=== PATIENT | male | born 1975 | race Hispanic/Latino ===

== ENCOUNTER 2016-08-16 13:36 | Emergency (ER) | payer SELFPAY ==
[2016-08-16] MEDS ORDERED: SODIUM CHLORIDE 0.9% 1000ML 1,000 ML IVS ONE ×2 (15:57→17:24)
[2016-08-16 18:37] VITALS: TEMP 99.7
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
[2016-08-16 18:40] VITALS: O2SAT 96
[2016-08-16 22:14] VITALS: BP 176/111
== END 2016-08-16 22:18 | disposition home or self-care (01) ==
LOC: ER 13:36
DX: R53.1 Weakness (principal); E86.0 Dehydration; R53.83 Other fatigue
CPT/HCPCS: 36415; 80053; 81001; 82550; 82553; 83036; 84436; 84443; 85025; J7030

== ENCOUNTER 2016-08-17 20:16 | Observation (INO) | payer OTHER, SELFPAY ==
--- NOTE | 2016-08-17 22:03 | RAD ---
EXAM DESCRIPTION: Chest,2 Views CLINICAL HISTORY: 41 years Male chest discomfort COMPARISON: None. FINDINGS: The cardiomediastinal silhouette appears unremarkable. No consolidating infiltrates or pleural effusions. No pneumothorax. IMPRESSION: No acute abnormality is identified. Electronically signed by: Geovany Low MD 08/17/2016 8:54 PM PHARMACEUTICAL PHYSICIAN
[2016-08-17] MEDS ORDERED: HYDROcodone 5MG/APAP 325MG 1 EA TAB PO ONE (22:33)
[2016-08-17] MEDS ORDERED: ASPIRIN TABLET 325 MG TAB PO ONE (22:33)
[2016-08-17] MEDS ORDERED: SUCRALFATE 1 GM/10 ML 1 GM UD PO ONE (22:33)
[2016-08-17] MEDS ORDERED: METOPROLOL TARTRATE 25 MG TAB PO ONE (22:34)
--- NOTE | 2016-08-17 22:40 | ED.PDOC ---
History of Present Illness - General Chief Complaint: General Stated Complaint: chest discomfort Time Seen by Provider: 08/17/16 20:34 Source: patient, RN notes reviewed Exam Limitations: clinical condition - History of Present Illness Initial Comments: the patient is a 41-year-old male with a history of rheumatic brain injury presenting secondary to chest discomfort of some form. He has a difficult time communicating what he is feeling. Sometimes he says it hurts at other times he says it did not hurt. He keeps saying that it itches. He did however get out that he was scared for his life last night when he walked home from the ER. He was seen at the ER yesterday and treated for some dehydration. He had an elevation of his CPK that was consistent. 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 He does not have any known history of any cardiac difficulties. I'm uncertain if he will actually remember if he did. His EKG is consistent with LVH with small Q waves in 12 and aVL. He was significantly hypertensive upon arrival but with relaxation is come down to a normotensive state. His discomfort upon arrival has resolved as well with the return of a normotensive state. I'm unsure if the hypertension was causing discomfort or if the discomfort was causing the hypotension he denies any recent trauma. He denies any other symptoms. Timing/Duration: 24 hours Severity: moderate Improving Factors: nothing Worsening Factors: nothing Associated Symptoms: chest pain Allergies/Adverse Reactions: Allergies NO KNOWN ALLERGY Allergy (Verified 08/16/16 15:56) Home Medications: Ambulatory Orders NK [NK] 08/17/16 Review of Systems - Review of Systems Constitutional: States: no symptoms reported EENTM: States: no symptoms reported Respiratory: States: no symptoms reported Cardiology: States: chest pain Gastrointestinal/Abdominal: States: no symptoms reported Genitourinary: States: no symptoms reported Musculoskeletal: States: no symptoms reported Skin: States: no symptoms reported Neurological: States: anxiety Endocrine: States: no symptoms reported All other Systems: No Change from Baseline Past Medical History (General) - Patient Medical History Hx Stroke: No Hx Asthma: No Hx Congestive Heart Failure: No Hx Hypertension: No Hx Diabetes: No Surgical History: no surgical history - Vaccination History Hx Tetanus, Diphtheria Vaccination: No Hx Influenza Vaccination: No Hx Pneumococcal Vaccination: No Immunizations Up to Date: Yes - Social History Hx Tobacco Use: No - Activities of Daily Living Hospice Agency (if applicable):: None Family Medical History - Family History Father Family History: Unknown Living Status: Unknown Physical Exam - Physical Exam General Appearance: Alert, Anxious Eye Exam: bilateral normal Ears, Nose, Throat: normal ENT inspection, normal pharynx Neck: full range of motion, supple, normal inspection Respiratory: lungs clear, normal breath sounds, no respiratory distress, no accessory muscle use Cardiovascular/Chest: normal peripheral pulses, regular rate, rhythm, no edema Peripheral Pulses: radial,right: 2+, radial,left: 2+ Gastrointestinal/Abdominal: non tender, soft, no organomegaly Rectal Exam: deferred Back Exam: normal inspection, no CVA tenderness Extremity: normal range of motion, non-tender, normal inspection, no pedal edema , normal capillary refill Neurologic: alert, oriented x 3 Skin Exam: normal color Comments: Vital Signs - 24 hr 08/17/16 08/17/16 08/17/16 20:25 21:04 21:15 Pulse Rate [ 90 88 86 Left radial] Respiratory 18 16 18 Rate Blood Pressure 156/112 172/102 158/87 [Left Arm] O2 Sat by Pulse 93 L 94 L 94 L Oximetry 08/17/16 08/17/16 08/17/16 21:35 22:23 22:41 Pulse Rate [ 81 76 74 Left radial] Respiratory 16 18 18 Rate Blood Pressure 153/86 151/80 147/90 [Left Arm] O2 Sat by Pulse 94 L Oximetry Progress - Progress Progress: 08/17/16 22:43 the patient is a 41-year-old male presenting to the emergency room secondary to chest discomfort of some form. I'm uncertain of the source on this patient and the picture is made more vague by the patient's inability to communicate what he is feeling. We will admit the patient for observation overnight and for reevaluation in the morning. If he remains moderately hypertensive then possibly starting him on an every antihypertensive medication may be beneficial. He was given a dose of aspirin tonight as well as a low- dose of metoprolol. Telemetry monitoring has been reassuring so far. He is currently chest pain-free. - Results/Orders Results/Orders: Laboratory Tests 08/17/16 20:50 WBC 9.2 RBC 4.82 Hgb 14.8 Hct 43.4 MCV 90.0 MCH 30.8 MCHC 34.2 RDW 14.0 Plt Count 291 MPV 7.5 Absolute Neuts (auto) 6.70 Absolute Lymphs (auto) 1.80 Absolute Monos (auto) 0.60 Absolute Eos (auto) 0.00 Absolute Basos (auto) 0.00 Neutrophils % 72.7 Lymphocytes % 19.9 L Monocytes % 6.7 Eosinophils % 0.4 L Basophils % 0.3 PT 11.4 INR 1.010 PTT (SP) 32.2 Sodium 139 Potassium 3.8 Chloride 101 Carbon Dioxide 29 Anion Gap 12.8 BUN 18 Creatinine 0.93 BUN/Creatinine Ratio 19.4 Random Glucose 159 H Serum Osmolality 282.8 Calcium 9.5 Total Bilirubin 0.5 AST 55 H ALT 97 H Alkaline Phosphatase 59 Creatine Kinase 520 H* CK-MB (CK-2) 3.3 CK-MB (CK-2) % 0.63 Troponin I < 0.02 B-Natriuretic Peptide 20.8 Serum Total Protein 8.3 H Albumin 4.4 Globulin 3.9 H Albumin/Globulin Ratio 1.1 EKG shows normal sinus rhythm at a rate of 85 bpm. He has small Q waves in 12 and aVL. He does have some hypertrophy due to high voltage in the anterior leads. No acute ST segment changes concerning for ischemia. Chest x-ray shows no gross fluid overload, pneumonia or pneumothorax. Departure - Departure Clinical Impression: Uncontrolled hypertension Chest pain Qualifiers: Chest pain type: precordial chest pain Qualifier Code: (R07.2) Precordial pain Disposition: Admit Patient Home Medications: Ambulatory Orders NK [NK] 08/17/16 Decision To Admit - Decistion To Admit Decision to Admit Reason: Medical Nature Decision to Admit Date: 08/17/16 Decision to Admit Time: 22:45
[2016-08-17] MEDS ORDERED: ACETAMINOPHEN 325 MG TAB PO PRN (23:01)
[2016-08-17] MEDS ORDERED: MORPHINE SULFATE INJ 10 MG/ML VIAL IV PRN (23:01)
[2016-08-17] MEDS ORDERED: NITROGLYCERIN 0.4 MG 25 EA TAB SL PRN (23:01)
[2016-08-17] MEDS ORDERED: SODIUM CHLORIDE 0.9% (FLUSH) 10 ML SYG IV PRN (23:01)
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
[2016-08-17] MEDS ORDERED: IV SET AND CAP CHANGE INJ INJ SCH (23:30)
--- NOTE | 2016-08-18 00:15 | PCM.CORE ---
Physician DVT/VTE - Nurse DVT Assessment & Total Each Risk Factor is 1 Point: Obesity (BMI >25) DVT Assessment Score: 1 - 0-1 Low Risk Treatments: Early Ambulation, Low Risk no further treatment or intervention needed
[2016-08-18] MEDS ORDERED: SODIUM CHLORIDE 0.9% 10 ML VIAL IV PRN (07:27)
[2016-08-18] MEDS ORDERED: ASPIRIN TABLET 325 MG TAB PO SCH (09:00)
[2016-08-18] MEDS ORDERED: SODIUM CHLORIDE 0.9% (FLUSH) 10 ML SYG IV SCH (09:00)
[2016-08-18] MEDS ORDERED: LISINOPRIL 5 MG TAB ONE (14:56)
[2016-08-18] MEDS ORDERED: LISINOPRIL 10 MG TAB PO SCH (15:00)
[2016-08-18 15:57] VITALS: BP 164/103; TEMP 98.6; O2SAT 94
[2016-08-18] MEDS ORDERED: ALPRAZolam 0.25 MG TAB PO ONE (16:35)
[2016-08-18] MEDS ORDERED: ALPRAZolam 0.25 MG TAB ONE (16:43)
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
--- NOTE | 2016-08-19 13:46 | RAD ---
EXAM DESCRIPTION: Chest,2 Views CLINICAL HISTORY: 41 years Male chest discomfort COMPARISON: None. FINDINGS: The cardiomediastinal silhouette appears unremarkable. No consolidating infiltrates or pleural effusions. No pneumothorax. IMPRESSION: No acute abnormality is identified. Electronically signed by: Geovany Low MD 08/17/2016 8:54 PM MANAGER POOL
--- NOTE | 2016-08-24 00:30 | RAD ---
EXAM DESCRIPTION: Chest,2 Views CLINICAL HISTORY: 41 years Male chest discomfort COMPARISON: None. FINDINGS: The cardiomediastinal silhouette appears unremarkable. No consolidating infiltrates or pleural effusions. No pneumothorax. IMPRESSION: No acute abnormality is identified. Electronically signed by: Geovany Low MD 08/17/2016 8:54 PM CATTLE SORTER
--- NOTE | 2016-08-24 00:30 | RAD ---
EXAM DESCRIPTION: Chest,2 Views CLINICAL HISTORY: 41 years Male chest discomfort COMPARISON: None. FINDINGS: The cardiomediastinal silhouette appears unremarkable. No consolidating infiltrates or pleural effusions. No pneumothorax. IMPRESSION: No acute abnormality is identified. Electronically signed by: Geovany Low MD 08/17/2016 8:54 PM EPITAXIAL REACTOR OPERATOR
== END 2016-08-18 16:55 | disposition home or self-care (01) ==
LOC: ER 20:16 → MS 23:10
PROVIDERS: ADMIT Nurse Practitioner Family; ATTEND Nurse Practitioner Acute Care
DX: R07.89 Other chest pain (principal); R79.89 Other specified abnormal findings of blood chemistry; I10 Essential (primary) hypertension; F41.9 Anxiety disorder, unspecified; Z87.820 Personal history of traumatic brain injury

== ENCOUNTER 2016-08-26 03:15 | Emergency (ER) | payer OTHER, SELFPAY ==
[2016-08-26 03:34] VITALS: O2SAT 95
[2016-08-26] MEDS ORDERED: SODIUM CHLORIDE 0.9% (FLUSH) 10 ML SYG IV PRN (03:45)
--- NOTE | 2016-08-26 05:31 | RAD ---
Clinical History : palpitations , MAIN Exam : Portable AP view of the chest 08/26/2016 3:45 AM WEB PRESS OPERATOR ASSISTANT Comparisons : PA and lateral views of the chest August 17, 2016 Findings : The lungs are clear without focal consolidation or pleural effusion. The heart is normal in size. The mediastinal contours are normal in appearance. The thoracic spine is age appropriate. The shoulders are unremarkable. Limited evaluation of the upper abdomen demonstrates no gross abnormalities. Impression: No acute cardiopulmonary disease (stable appearing chest). Electronically signed by: Pauline Elias MD 08/26/2016 5:10 AM WEB PRESS OPERATOR ASSISTANT
--- NOTE | 2016-08-26 06:48 | ED.PDOC ---
History of Present Illness - General Chief Complaint: General Stated Complaint: muscles feel weak Time Seen by Provider: 08/26/16 03:45 Source: patient, RN notes reviewed, Vital Signs reviewed Exam Limitations: other - Poor historian - History of Present Illness Initial Comments: Patient is a 41 y/o male who has been to the ED several times in the past week. He complains of chest pain and feeling weak. He is a very poor historian and very vague about his symptoms. He says he has "pressure" in his chest and his muscles are very weak. He has an appointment with Marycarmen Jalloh NP later today. It is difficult to get a good story about his pain out of him. Timing/Duration: unsure Severity: mild Improving Factors: nothing Worsening Factors: nothing Associated Symptoms: chest pain, weakness Allergies/Adverse Reactions: Allergies NO KNOWN ALLERGY Allergy (Verified 08/16/16 15:56) Home Medications: Ambulatory Orders Lisinopril [Prinivil] 10 mg PO DAILY #30 tab 08/18/16 Review of Systems - Review of Systems Constitutional: States: malaise, weakness EENTM: States: no symptoms reported Respiratory: States: no symptoms reported Cardiology: States: chest pain Gastrointestinal/Abdominal: States: no symptoms reported Genitourinary: States: no symptoms reported Musculoskeletal: States: muscle pain Skin: States: no symptoms reported Neurological: States: headache Endocrine: States: no symptoms reported Hematologic/Lymphatic: States: no symptoms reported All other Systems: Reviewed and Negative Past Medical History (General) - Patient Medical History Hx Seizures: No Hx Stroke: No Hx Asthma: No Hx of COPD: No Hx Congestive Heart Failure: No Hx Pacemaker: No Hx Hypertension: Yes Hx Diabetes: No Hx MRSA: No - Vaccination History Hx Tetanus, Diphtheria Vaccination: No Hx Influenza Vaccination: No Hx Pneumococcal Vaccination: No - Social History Hx Tobacco Use: No Hx Alcohol Use: No - drinks twice per month Hx Substance Use: No Hx Physical Abuse: No Hx Emotional Abuse: No Family Medical History - Family History Father Family History: Unknown Living Status: Unknown Physical Exam - Physical Exam General Appearance: Alert, Comfortable, No apparent distress Eye Exam: bilateral normal Ears, Nose, Throat: hearing grossly normal, normal ENT inspection Neck: non-tender, full range of motion, supple, normal inspection Respiratory: lungs clear, normal breath sounds, no respiratory distress, no accessory muscle use Cardiovascular/Chest: normal peripheral pulses, regular rate, rhythm, no edema, no gallop, no murmur Gastrointestinal/Abdominal: normal bowel sounds, non tender, soft, no organomegaly Extremity: normal range of motion, non-tender, normal inspection, no pedal edema Neurologic: alert, oriented x 3 Skin Exam: normal color Progress - Results/Orders Results/Orders: 08/26/16 08/26/16 08/26/16 03:29 04:04 04:24 Temperature 98.9 F Pulse Rate [ 100 H 90 Right] Respiratory 20 Rate Blood Pressure 160/102 146/87 [Left Arm] O2 Sat by Pulse 95 95 Oximetry 08/26/16 08/26/16 05:33 06:20 Temperature Pulse Rate [ 88 74 Right] Respiratory 16 16 Rate Blood Pressure 142/86 133/78 [Left Arm] O2 Sat by Pulse Oximetry 08/26/16 03:45 IV Care:Saline Lock per Protoc QSHIFT Telemetry .ONCE Sodium Chloride 0.9% (Flush) [Saline Flush Syringe] 10 ml IV PRN PRN EKG Stat Pulse Ox Stat Laboratory Results WBC 9.0 K/mm3 (4.8-10.8) 08/26/16 04:19 RBC 4.91 M/mm3 (4.70-6.10) 08/26/16 04:19 Hgb 15.0 gm/dL (14.0-18.0) 08/26/16 04:19 Hct 43.4 % (42.0-52.0) 08/26/16 04:19 MCV 88.4 fl (80.0-94.0) 08/26/16 04:19 MCH 30.5 pg (27.0-31.0) 08/26/16 04:19 MCHC 34.5 g/dL (33.0-37.0) 08/26/16 04:19 RDW 14.2 % (11.5-14.5) 08/26/16 04:19 Plt Count 293 K/mm3 (130-400) 08/26/16 04:19 MPV 7.6 fl (7.40-10.4) 08/26/16 04:19 Absolute Neuts (auto) 6.40 K/uL (1.8-6.8) 08/26/16 04:19 Absolute Lymphs (auto) 1.80 K/uL (1.0-3.4) 08/26/16 04:19 Absolute Monos (auto) 0.70 K/uL (0.2-0.8) 08/26/16 04:19 Absolute Eos (auto) 0.10 K/uL (0.0-0.4) 08/26/16 04:19 Absolute Basos (auto) 0.10 K/uL (0.0-0.1) 08/26/16 04:19 Neutrophils % 71.1 % (42.0-78.0) 08/26/16 04:19 Lymphocytes % 20.2 % (20.0-50.0) 08/26/16 04:19 Monocytes % 7.4 % (2.0-9.0) 08/26/16 04:19 Eosinophils % 0.6 % (1.0-5.0) L 08/26/16 04:19 Basophils % 0.7 % (0.0-2.0) 08/26/16 04:19 PT 12.2 SECONDS (9.4-12.5) 08/26/16 04:19 INR 1.080 08/26/16 04:19 PTT (SP) 31.5 SECONDS (25.1-36.5) 08/26/16 04:19 Sodium 135 mmol/L (135-145) 08/26/16 04:19 Potassium 3.4 mmol/L (3.6-5.0) L 08/26/16 04:19 Chloride 96 mmol/L (101-111) L 08/26/16 04:19 Carbon Dioxide 29 mmol/L (21-31) 08/26/16 04:19 Anion Gap 13.4 (12-18) 08/26/16 04:19 BUN 12 mg/dL (7-18) 08/26/16 04:19 Creatinine 0.99 mg/dL (0.6-1.3) 08/26/16 04:19 BUN/Creatinine Ratio 12.1 (10-20) 08/26/16 04:19 Random Glucose 140 mg/dL (70-105) H 08/26/16 04:19 Serum Osmolality 272.2 mOsm/L (275-295) L 08/26/16 04:19 Calcium 9.4 mg/dL (8.4-10.2) 08/26/16 04:19 Magnesium 1.9 mg/dL (1.8-2.5) 08/26/16 04:19 Creatine Kinase 404 IU/L (38-174) H* 08/26/16 04:19 CK-MB (CK-2) 3.7 ng/mL (0.0-4.4) 08/26/16 04:19 CK-MB (CK-2) % 0.01 % (0.0-3.5) 08/26/16 04:19 Troponin I < 0.02 ng/mL (0.01-0.05) 08/26/16 04:19 B-Natriuretic Peptide < 5.0 pg/ml (0-100) 08/26/16 04:19 Urine Color Colorless (Yellow) 08/26/16 04:50 Urine Appearance Clear (Clear) 08/26/16 04:50 Urine pH 5.5 (4.5-7.8) 08/26/16 04:50 Ur Specific [place] <= 1.005 (1.005-1.030) 08/26/16 04:50 Urine Protein Negative mg/dL 08/26/16 04:50 Urine Glucose (UA) Negative mg/dL (Negative) 08/26/16 04:50 Urine Ketones Negative mg/dL (NEGATIVE) 08/26/16 04:50 Urine Blood Trace-lysed (Negative) H 08/26/16 04:50 Urine Nitrite Negative 08/26/16 04:50 Urine Bilirubin Negative (NEGATIVE) 08/26/16 04:50 Urine Urobilinogen 0.2 mg/dL (0.2-1.0) 08/26/16 04:50 Ur Leukocyte Esterase Negative (Negative) 08/26/16 04:50 Urine RBC 0 /hpf 08/26/16 04:50 Urine WBC 0 /hpf 08/26/16 04:50 Ur Epithelial Cells 0 /hpf 08/26/16 04:50 Urine Bacteria 0 08/26/16 04:50 - EKG/XRAY/CT EKG: Sinus - 88 bpm, no ST T wave changes, Unchanged from - 08/17/2016 - NSR Comments: NML axis, NML intervals, NSR XRAY: chest Xray Comments: No acute process Departure - Departure Clinical Impression: Elevated CK Chest pain Qualifiers: Chest pain type: unspecified Qualifier Code: (R07.9) Chest pain, unspecified Disposition: Discharge to Home or Self Care Condition: Fair Departure Forms: ED Discharge - Pt. Copy, Patient Portal Self Enrollment Instructions: DI for Atypical Chest Pain Diet: resume usual diet Referrals: Marycarmen Jalloh NP [Nurse Practitioner] - 1-2 Days Home Medications: Ambulatory Orders Lisinopril [Prinivil] 10 mg PO DAILY #30 tab 08/18/16 Additional Instructions: Keep appt. with Marycarmen Jalloh, N.P. today to discuss options. Stay well- hydrated. Follow up if symptoms persist or worsen.
[2016-08-26 07:04] VITALS: BP 138/80; TEMP 97.9
--- NOTE | 2016-08-28 13:37 | RAD ---
Clinical History : palpitations , MAIN Exam : Portable AP view of the chest 08/26/2016 3:45 AM ANIMATED [employer] Comparisons : PA and lateral views of the chest August 17, 2016 Findings : The lungs are clear without focal consolidation or pleural effusion. The heart is normal in size. The mediastinal contours are normal in appearance. The thoracic spine is age appropriate. The shoulders are unremarkable. Limited evaluation of the upper abdomen demonstrates no gross abnormalities. Impression: No acute cardiopulmonary disease (stable appearing chest). Electronically signed by: Pauline Elias MD 08/26/2016 5:10 AM [employer]IMATED [employer]
== END 2016-08-26 07:04 | disposition home or self-care (01) ==
LOC: ER 03:15
DX: R07.9 Chest pain, unspecified (principal); R79.89 Other specified abnormal findings of blood chemistry; I10 Essential (primary) hypertension; Z79.899 Other long term (current) drug therapy

== ENCOUNTER 2016-08-27 02:10 | Emergency (ER) | payer OTHER, SELFPAY ==
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
[2016-08-27 07:05] VITALS: BP 154/61; TEMP 97.6; O2SAT 97
== END 2016-08-27 07:08 | disposition home or self-care (01) ==
LOC: ER 02:10
DX: I10 Essential (primary) hypertension (principal); Z79.899 Other long term (current) drug therapy

== ENCOUNTER 2016-08-30 19:41 | Emergency (ER) | payer OTHER, SELFPAY ==
[2016-08-30] MEDS ORDERED: SODIUM CHLORIDE 0.9% (FLUSH) 10 ML SYG IV PRN (20:40)
--- NOTE | 2016-08-30 21:22 | RAD ---
EXAM DESCRIPTION: Chest,2 Views CLINICAL HISTORY: shortness of breath COMPARISON: August 26, 2016 FINDINGS: Cardiac silhouette is within normal limits. There is no focal parenchymal or pleural disease. There is no acute osseous process visualized. IMPRESSION: No evidence of acute cardiopulmonary disease. Electronically signed by: Shakeel Boyle MD 08/30/2016 9:22 PM [facility]
[2016-08-30] MEDS ORDERED: SODIUM CHLORIDE 0.9% 1000ML 1,000 ML IVS ONE (21:53)
[2016-08-30] MEDS ORDERED: PENICILLIN BENZATHINE 1.2 MU 1.2 MU/2 ML SYG IM ONE (21:55)
--- NOTE | 2016-08-30 22:30 | ED.PDOC ---
History of Present Illness - General Chief Complaint: Respiratory Problem Stated Complaint: thinks he has a cold,weakness,difficulty breathing Time Seen by Provider: 08/30/16 20:39 Source: patient, RN notes reviewed, Vital Signs reviewed Exam Limitations: no limitations - History of Present Illness Initial Comments: Patient is a 41 y/o male who has been to the ED several times because he doesn' t feel well. Today, he states that he is having touble breathing because of his throat. When he goes outside, the wind takes his breath away, and his throat feels swollen. He is also complaining of feeling weak, especially his legs. He has had elevated CK for some time. He denies any fever or chills. Timing/Duration: other - 3 days Severity: moderate Improving Factors: nothing Worsening Factors: other - wind Associated Symptoms: shortness of breath, weakness Allergies/Adverse Reactions: Allergies NO KNOWN ALLERGY Allergy (Verified 08/27/16 02:41) Home Medications: Ambulatory Orders Lisinopril [Prinivil] 10 mg PO DAILY #30 tab 08/18/16 Clonazepam 0.5 mg PO DAILY #15 tab 08/27/16 Famotidine 20 mg PO DAILY #30 tab 08/27/16 Propranolol HCl 20 mg PO BID #60 tab 08/27/16 Review of Systems - Review of Systems Constitutional: States: weakness. Denies: chills, fever EENTM: States: throat pain, throat swelling. Denies: ear pain, nose congestion Respiratory: States: short of breath Cardiology: States: no symptoms reported Gastrointestinal/Abdominal: States: no symptoms reported Genitourinary: States: no symptoms reported Musculoskeletal: States: muscle pain Skin: States: no symptoms reported Neurological: States: anxiety, weakness Endocrine: States: no symptoms reported Hematologic/Lymphatic: States: no symptoms reported All other Systems: Reviewed and Negative Past Medical History (General) - Patient Medical History Hx Seizures: No Hx Stroke: No Hx Asthma: No Hx of COPD: No Hx Congestive Heart Failure: No Hx Pacemaker: No Hx Hypertension: Yes Hx Diabetes: No Hx MRSA: No - Vaccination History Hx Tetanus, Diphtheria Vaccination: No Hx Influenza Vaccination: No Hx Pneumococcal Vaccination: No Immunizations Up to Date: Yes - Social History Hx Tobacco Use: No Hx Alcohol Use: Yes Hx Substance Use: Yes - as teen Hx Depression: Yes Hx Physical Abuse: No Hx Emotional Abuse: No Family Medical History - Family History Father Family History: Unknown Living Status: Unknown Physical Exam - Physical Exam General Appearance: Alert, Anxious, No apparent distress Ears, Nose, Throat: hearing grossly normal, abnormal TM (R) - cerumen impaction , abnormal TM (L) - cerumen impaction, pharyngeal erythema - with vesicular lesions on posterior pharynx Neck: non-tender, normal inspection Respiratory: lungs clear, normal breath sounds, no respiratory distress, no accessory muscle use Cardiovascular/Chest: regular rate, rhythm, no edema, no murmur Gastrointestinal/Abdominal: normal bowel sounds, non tender, soft, no organomegaly Extremity: normal range of motion, non-tender, no pedal edema Neurologic: alert, normal mood/affect, oriented x 3 Skin Exam: normal color, warm/dry Progress - Results/Orders Results/Orders: 08/30/16 08/30/16 20:08 21:04 Temperature 99.4 F Pulse Rate [ 91 H monitor] Respiratory 18 Rate Blood Pressure 133/81 [Left Arm] O2 Sat by Pulse 93 L 98 Oximetry 08/30/16 20:40 IV Care:Saline Lock per Protoc QSHIFT Telemetry .ONCE Sodium Chloride 0.9% (Flush) [Saline Flush Syringe] 10 ml IV PRN PRN EKG Assessment ONCE EKG Stat Pulse Ox Stat Pulse Oximetry Assessment DAILY 08/30/16 21:53 Sodium Chloride 0.9% 1000ML [Ns 1000 ml] 1,000 ml IVS ONCE Laboratory Results WBC 7.8 K/mm3 (4.8-10.8) 08/30/16 20:50 RBC 4.80 M/mm3 (4.70-6.10) 08/30/16 20:50 Hgb 14.8 gm/dL (14.0-18.0) 08/30/16 20:50 Hct 43.0 % (42.0-52.0) 08/30/16 20:50 MCV 89.5 fl (80.0-94.0) 08/30/16 20:50 MCH 30.7 pg (27.0-31.0) 08/30/16 20:50 MCHC 34.3 g/dL (33.0-37.0) 08/30/16 20:50 RDW 14.2 % (11.5-14.5) 08/30/16 20:50 Plt Count 255 K/mm3 (130-400) 08/30/16 20:50 MPV 7.7 fl (7.40-10.4) 08/30/16 20:50 Absolute Neuts (auto) 5.50 K/uL (1.8-6.8) 08/30/16 20:50 Absolute Lymphs (auto) 1.40 K/uL (1.0-3.4) 08/30/16 20:50 Absolute Monos (auto) 0.70 K/uL (0.2-0.8) 08/30/16 20:50 Absolute Eos (auto) 0.20 K/uL (0.0-0.4) 08/30/16 20:50 Absolute Basos (auto) 0.00 K/uL (0.0-0.1) 08/30/16 20:50 Neutrophils % 69.9 % (42.0-78.0) 08/30/16 20:50 Lymphocytes % 17.6 % (20.0-50.0) L 08/30/16 20:50 Monocytes % 9.4 % (2.0-9.0) H 08/30/16 20:50 Eosinophils % 2.8 % (1.0-5.0) 08/30/16 20:50 Basophils % 0.3 % (0.0-2.0) 08/30/16 20:50 PT 11.9 SECONDS (9.4-12.5) 08/30/16 20:50 INR 1.050 08/30/16 20:50 PTT (SP) 28.6 SECONDS (25.1-36.5) 08/30/16 20:50 D-Dimer, Quantitative < 230 ng/mL (0-230) 08/30/16 20:50 Sodium 138 mmol/L (135-145) 08/30/16 20:50 Potassium 4.1 mmol/L (3.6-5.0) 08/30/16 20:50 Chloride 97 mmol/L (101-111) L 08/30/16 20:50 Carbon Dioxide 32 mmol/L (21-31) H 08/30/16 20:50 Anion Gap 13.1 (12-18) 08/30/16 20:50 BUN 16 mg/dL (7-18) 08/30/16 20:50 Creatinine 1.04 mg/dL (0.6-1.3) 08/30/16 20:50 BUN/Creatinine Ratio 15.4 (10-20) 08/30/16 20:50 Random Glucose 119 mg/dL (70-105) H 08/30/16 20:50 Serum Osmolality 278.0 mOsm/L (275-295) 08/30/16 20:50 Calcium 10.1 mg/dL (8.4-10.2) 08/30/16 20:50 Magnesium 2.2 mg/dL (1.8-2.5) 08/30/16 20:50 Total Bilirubin 0.3 mg/dL (0.2-1.0) 08/30/16 20:50 Direct Bilirubin < 0.1 mg/dL (0-0.2) 08/30/16 20:50 Indirect Bilirubin 0.2 mg/dL (0.2-0.8) 08/30/16 20:50 AST 41 IU/L (10-42) 08/30/16 20:50 ALT 54 IU/L (10-60) 08/30/16 20:50 Alkaline Phosphatase 59 IU/L (42-121) 08/30/16 20:50 Creatine Kinase 574 IU/L (38-174) H* 08/30/16 20:50 CK-MB (CK-2) 3.1 ng/mL (0.0-4.4) 08/30/16 20:50 CK-MB (CK-2) % Not Reportable 08/30/16 20:50 Troponin I < 0.02 ng/mL (0.01-0.05) 08/30/16 20:50 B-Natriuretic Peptide < 5.0 pg/ml (0-100) 08/30/16 20:50 Serum Total Protein 7.7 gm/dL (6.4-8.2) 08/30/16 20:50 Albumin 4.2 g/dl (3.2-5.5) 08/30/16 20:50 Group A Strep Rapid Positive (NEGATIVE) 08/30/16 20:55 - EKG/XRAY/CT EKG: Sinus - 92 bpm, no ST T wave changes, Changed from - 08/27/2016 - decreased amplitude of Q-waves in leads I, II, aVL in today's EKG Comments: NML axis, NML intervals--NSR Departure - Departure Clinical Impression: Strep pharyngitis, Elevated CK Time of Disposition: 23:30 Disposition: Discharge to Home or Self Care Condition: Fair Departure Forms: ED Discharge - Pt. Copy, Patient Portal Self Enrollment Instructions: Strep Throat, DI for Strep Throat, Creatine Kinase Referrals: Marycarmen Jalloh NP [Nurse Practitioner] - 1-2 Weeks Home Medications: Ambulatory Orders Lisinopril [Prinivil] 10 mg PO DAILY #30 tab 08/18/16 Clonazepam 0.5 mg PO DAILY #15 tab 08/27/16 Famotidine 20 mg PO DAILY #30 tab 08/27/16 Propranolol HCl 20 mg PO BID #60 tab 08/27/16 Additional Instructions: May take Tylenol for fever or pain. Follow up with PCP or ED if symptoms worsen.
[2016-08-30 23:48] VITALS: BP 158/87; TEMP 99.2; O2SAT 94
== END 2016-08-30 23:48 | disposition home or self-care (01) ==
LOC: ER 19:41
DX: J02.0 Streptococcal pharyngitis (principal); R79.89 Other specified abnormal findings of blood chemistry; I10 Essential (primary) hypertension; F32.9 Major depressive disorder, single episode, unspecified; Z79.899 Other long term (current) drug therapy

== ENCOUNTER → 2016-09-04 | Outpatient (CLI) | payer OTHER, SELFPAY ==
--- NOTE | 2016-09-07 07:36 | RAD ---
Three view thoracic spine. Indication: PAIN IN THORACIC SPINE Comparison: None. Impression: Minimal levocurvature thoracolumbar junction with minimal dextro curvature mid thoracic spine. The No acute fracture or subluxation. Minimal disc space height loss mid thoracic levels. Electronically signed by: Da Flores MD 09/07/2016 7:35 AM CDT
== END | disposition home or self-care (01) ==
LOC: YCFC.O 14:43
PROVIDERS: ATTEND Nurse Practitioner Family
DX: M54.6 Pain in thoracic spine (principal)

== ENCOUNTER 2016-09-14 11:16 | Emergency (ER) | payer OTHER, SELFPAY ==
[2016-09-14 11:57] VITALS: TEMP 97.9; O2SAT 97
--- NOTE | 2016-09-14 12:02 | ED.PDOC ---
History of Present Illness - General Chief Complaint: General Stated Complaint: arm creeks Time Seen by Provider: 09/14/16 11:18 Source: patient, RN notes reviewed, Vital Signs reviewed Exam Limitations: no limitations - History of Present Illness Initial Comments: Patient is here because he feels he needs a Tetnus shot. He reports that since his L elbow creeks and his forearm muscles are softer on the L. He also has chronic low back pain. He is a poor historian. Does not remember his last Tetnus shot. He denies any scrapes or cuts prior to his arm starting to lime. This is his 6th visit in the past 30 days for multiple, vague complaints. Denies pain, numbness or tingling in L arm. + weakness. Timing/Duration: constant - for over a month Severity: mild Improving Factors: nothing Worsening Factors: nothing Associated Symptoms: denies symptoms Allergies/Adverse Reactions: Allergies NO KNOWN ALLERGY Allergy (Verified 08/27/16 02:41) Home Medications: Ambulatory Orders Lisinopril [Prinivil] 10 mg PO DAILY #30 tab 08/18/16 Clonazepam 0.5 mg PO DAILY #15 tab 08/27/16 Famotidine 20 mg PO DAILY #30 tab 08/27/16 Propranolol HCl 20 mg PO BID #60 tab 08/27/16 Review of Systems - Review of Systems Constitutional: States: no symptoms reported EENTM: States: no symptoms reported Respiratory: States: no symptoms reported Cardiology: States: no symptoms reported Gastrointestinal/Abdominal: States: no symptoms reported Musculoskeletal: States: other - L forearm creeking and weak, Low back pain Skin: States: no symptoms reported Neurological: States: no symptoms reported, weakness - L forearm. Denies: headache, numbness, paresthesia, pre-existing deficit, tingling, tremors Endocrine: States: no symptoms reported Hematologic/Lymphatic: States: no symptoms reported Past Medical History (General) - Patient Medical History Hx Seizures: No Hx Stroke: No Hx Asthma: No Hx of COPD: No Hx Congestive Heart Failure: No Hx Pacemaker: No Hx Hypertension: Yes Hx Diabetes: No Hx MRSA: No - Vaccination History Hx Tetanus, Diphtheria Vaccination: No - not sure when his last one was Hx Influenza Vaccination: No Hx Pneumococcal Vaccination: No Immunizations Up to Date: No - Social History Hx Tobacco Use: No Hx Alcohol Use: Yes - 2 beers day Hx Substance Use: No Hx Substance Use Treatment: No Hx Depression: No Hx Physical Abuse: No Hx Emotional Abuse: No - Female History Patient is a Female of Child Bearing Age (10 -59 yrs old): No Family Medical History - Family History Father Family History: Unknown Living Status: Unknown Physical Exam - Physical Exam General Appearance: Alert, Comfortable, No apparent distress, Well Developed, Well Groomed, Well Hydrated, Well Nourished Respiratory: chest non-tender, lungs clear, normal breath sounds, no respiratory distress, no accessory muscle use Cardiovascular/Chest: regular rate, rhythm, no edema, no gallop, no JVD, no murmur Peripheral Pulses: radial,right: 2+, radial,left: 2+ Back Exam: normal inspection, no CVA tenderness, no vertebral tenderness Extremity: normal range of motion, non-tender, normal inspection, no pedal edema Neurologic: no motor/sensory deficits - Strength 5/5 bilateral upper ext, sensation intact and equal to light touch bilaterally, alert, normal mood/affect , oriented x 3 DTR: 2+: Biceps, left, Biceps, right Skin Exam: normal color, warm/dry Progress - Progress Progress: 09/14/16 12:59 Vital Signs - 24 hr 09/14/16 11:52 Temperature 97.9 F Pulse Rate [ 84 right arm] Respiratory 18 Rate Blood Pressure 157/92 [Right Arm] O2 Sat by Pulse 97 Oximetry 09/14/16 13:02 T-Dap given - EKG/XRAY/CT XRAY: L-Spine - Normal - Normal Departure - Departure Clinical Impression: Arthralgia, Low back pain, Myalgia Time of Disposition: 13:01 Disposition: Discharge to Home or Self Care Condition: Good Departure Forms: ED Discharge - Pt. Copy, Patient Portal Self Enrollment Instructions: DI for Arthralgia Diet: resume usual diet Activity: increase activity as tolerated Home Medications: Ambulatory Orders Lisinopril [Prinivil] 10 mg PO DAILY #30 tab 08/18/16 Clonazepam 0.5 mg PO DAILY #15 tab 08/27/16 Famotidine 20 mg PO DAILY #30 tab 08/27/16 Propranolol HCl 20 mg PO BID #60 tab 08/27/16 Additional Instructions: Take Tylenol or Motrin as needed for pain.
[2016-09-14] MEDS: TETANUS,DIPHTHERIA,PERTUSSIS 1 EA SYG IM ONE (12:35)
--- NOTE | 2016-09-14 12:39 | RAD ---
EXAM DESCRIPTION: Elbow,Left 3 Views CLINICAL HISTORY: Pain after injury COMPARISON: None. IMPRESSION: 3 views of the left elbow shows no evidence of acute fracture, focal bone destruction, or joint dislocation. Soft tissues are unremarkable. No obvious joint effusion is seen. Electronically signed by: Raudel Preciado MD 09/14/2016 12:39 PM CDT
--- NOTE | 2016-09-14 12:55 | RAD ---
EXAM DESCRIPTION: Lumbar Spine 3 Views CLINICAL HISTORY: 41 years Male, Pain after injury COMPARISON: None. FINDINGS: 3 views of the lumbar spine show vertebral body heights and intervertebral disc spaces to be maintained. Normal alignment of the lumbar spine is seen. Patient is rotated slightly on lateral projection limiting evaluation. No significant disc space narrowing is appreciated. IMPRESSION: Unremarkable lumbar spine series. Electronically signed by: Raudel Preciado MD 09/14/2016 12:54 PM CDT
[2016-09-14 13:15] VITALS: BP 148/79
== END 2016-09-14 13:15 | disposition home or self-care (01) ==
LOC: ER 11:16
DX: M25.522 Pain in left elbow (principal); G89.29 Other chronic pain; M54.5 Low back pain; M79.1 Myalgia; I10 Essential (primary) hypertension; Z79.899 Other long term (current) drug therapy; Z23 Encounter for immunization

== ENCOUNTER → 2016-09-29 | Outpatient (CLI) | payer SELFPAY ==
--- NOTE | 2016-09-30 10:07 | RAD ---
EXAM DESCRIPTION: Cervical Spine,3 Views CLINICAL HISTORY: 41 years Male, Cervicalgia COMPARISON: None. FINDINGS: 3 views of the cervical spine show vertebral body heights to be maintained. Mild anterior disc bulging and marginal endplate osteophytes are seen at C5-6 and C6-7. There is straightening of the normal cervical lordosis with no abnormal increase in the prevertebral soft tissues. The C1-2 relationship is maintained. IMPRESSION: Mild disc degenerative changes from C5 through C7. Straightening of the normal cervical lordosis is nonspecific and can be secondary to patient positioning or muscle spasm. Electronically signed by: Raudel Preciado MD 09/30/2016 10:06 AM CDT
== END ==
LOC: RAD 16:20
PROVIDERS: ATTEND Nurse Practitioner Family
DX: M50.322 Other cervical disc degeneration at C5-C6 level (principal); M50.323 Other cervical disc degeneration at C6-C7 level

== ENCOUNTER 2016-10-28 15:27 | Emergency (ER) | payer SELFPAY ==
[2016-10-28 15:45] VITALS: TEMP 98.6
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
--- NOTE | 2016-10-28 17:28 | RAD ---
EXAM DESCRIPTION: Lumbar Spine 3 Views CLINICAL HISTORY: 41 years ,Male pain COMPARISON: 09/14/2016. TECHNIQUE: Three views of the lumbar spine. FINDINGS: Vertebral body alignment appears unremarkable. Lucency along the lateral aspect of the right L3 transverse process concerning for acute fracture. Correlation with clinical history is recommended. Mild degenerative changes. IMPRESSION: Lucency along the lateral aspect of the right L3 transverse process could be from acute fracture. Correlation with the clinical history is recommended. Electronically signed by: Geovany Low MD 10/28/2016 5:25 PM CDT
[2016-10-28 17:58] VITALS: BP 114/62; O2SAT 95
== END 2016-10-28 17:50 | disposition home or self-care (01) ==
LOC: ER 15:27
DX: G62.9 Polyneuropathy, unspecified (principal); I10 Essential (primary) hypertension; Z79.899 Other long term (current) drug therapy

== ENCOUNTER → 2016-12-11 | Outpatient (CLI) | payer SELFPAY | END | disposition home or self-care (01) | LOC: YCFC.O 16:09 | PROVIDERS: ATTEND Nurse Practitioner Family | DX: K21.0 Gastro-esophageal reflux disease with esophagitis (principal) ==

== ENCOUNTER 2017-01-14 13:55 | Emergency (ER) | payer SELFPAY ==
--- NOTE | 2017-01-14 15:33 | ED.PDOC ---
History of Present Illness - General Chief Complaint: Skin/Abrasion/Tear Time Seen by Provider: 01/14/17 15:26 Source: patient Exam Limitations: no limitations - History of Present Illness Initial Comments: the patient is a 41-year-old male presenting to the emergency room secondary to some itching to bilateral feet for the last week. The patient does have some obvious athlete's foot between the toes. The rest of his feet are very dry and cracking. He does have some known neuropathy. He does take gabapentin. He does report however that this itching is a different kind and he has had his neuropathy in the past. No recent injuries. Timing/Duration: 1 week Severity: mild Improving Factors: nothing Worsening Factors: nothing Associated Symptoms: denies symptoms Allergies/Adverse Reactions: Allergies NO KNOWN ALLERGY Allergy (Verified 10/28/16 15:56) Home Medications: Ambulatory Orders B-Complex W/ Folic Acid [B Complex Plus] 1 tab PO BEDTIME #100 tab 10/28/16 Gabapentin 300 mg PO BID #30 cap 10/28/16 Lisinopril [Prinivil] 10 mg PO BEDTIME 10/28/16 Paroxetine HCl [Paxil] 10 mg PO BEDTIME 10/28/16 predniSONE 20 mg PO DAILY #10 tab 10/28/16 Review of Systems - Review of Systems Constitutional: States: no symptoms reported EENTM: States: no symptoms reported Respiratory: States: no symptoms reported Cardiology: States: no symptoms reported Gastrointestinal/Abdominal: States: no symptoms reported Genitourinary: States: no symptoms reported Musculoskeletal: States: no symptoms reported Skin: States: see HPI Neurological: States: no symptoms reported Endocrine: States: no symptoms reported All other Systems: No Change from Baseline Past Medical History (General) - Patient Medical History Hx Seizures: No Hx Stroke: No Hx Asthma: No Hx of COPD: No Hx Congestive Heart Failure: No Hx Pacemaker: No Hx Hypertension: Yes Hx Diabetes: No Hx MRSA: No - Vaccination History Hx Tetanus, Diphtheria Vaccination: No - not sure when his last one was Hx Influenza Vaccination: No Hx Pneumococcal Vaccination: No - Social History Hx Tobacco Use: No Hx Alcohol Use: Yes - infrequent use Hx Substance Use: No Hx Substance Use Treatment: No Hx Depression: No Hx Physical Abuse: No Hx Emotional Abuse: No Family Medical History - Family History Father Family History: Unknown Living Status: Hx Family Cancer: - possible prostate cancer Physical Exam - Physical Exam General Appearance: Alert, Comfortable, No apparent distress Ears, Nose, Throat: hearing grossly normal, normal pharynx Neck: non-tender Respiratory: no respiratory distress, no accessory muscle use Cardiovascular/Chest: normal peripheral pulses, no edema Peripheral Pulses: dorsalis pedis,right: 2+, dorsalis pedis,left: 2+ Rectal Exam: deferred Extremity: normal range of motion, non-tender, no pedal edema, no calf tenderness, normal capillary refill Neurologic: alert, oriented x 3, other - the patient does appear to have some mild decreased sensation to bilateral feet which is apparently not new. Skin Exam: other - dry skin to bilateral feet. Athlete's foot between the toes on both feet. He does have some onychomycosis of the nails of both feet Progress - Progress Progress: 01/14/17 15:34 the patient is a 41-year-old male presenting to the emergency room secondary to itchiness of his feet. Given the short duration of the symptoms this is most likely due to dry skin rather than his neuropathy. The patient can use a very thin layer of Vaseline topically once daily to help improve this. Additionally he does need to continue his medicine for athlete's foot between his toes twice daily. ER warnings were given. He needs to follow-up with his primary care doctor next week. Departure - Departure Clinical Impression: Dry skin dermatitis Tinea pedis Qualifiers: Laterality: bilateral Qualified Code(s): B35.3 - Tinea pedis Disposition: Discharge to Home or Self Care Condition: Fair Departure Forms: ED Discharge - Pt. Copy, Patient Portal Self Enrollment Instructions: DI for Athlete's Foot Diet: regular diet Activity: increase activity as tolerated Referrals: Mayrcarmen Jalloh NP [Primary Care Provider] - 1-5 Days Home Medications: Ambulatory Orders B-Complex W/ Folic Acid [B Complex Plus] 1 tab PO BEDTIME #100 tab 10/28/16 Gabapentin 300 mg PO BID #30 cap 10/28/16 Lisinopril [Prinivil] 10 mg PO BEDTIME 10/28/16 Paroxetine HCl [Paxil] 10 mg PO BEDTIME 10/28/16 predniSONE 20 mg PO DAILY #10 tab 10/28/16 Additional Instructions: the patient is a 41-year-old male presenting to the emergency room secondary to itchiness of his feet. Given the short duration of the symptoms this is most likely due to dry skin rather than his neuropathy. The patient can use a very thin layer of Vaseline topically once daily to help improve this. Additionally he does need to continue his medicine for athlete's foot between his toes twice daily. ER warnings were given. He needs to follow-up with his primary care doctor next week.
[2017-01-14 16:07] VITALS: TEMP 99.2; O2SAT 94
[2017-01-14 16:28] VITALS: BP 135/86
== END 2017-01-14 15:55 | disposition home or self-care (01) ==
LOC: ER 13:55
DX: B35.3 Tinea pedis (principal); L85.3 Xerosis cutis; I10 Essential (primary) hypertension; G62.9 Polyneuropathy, unspecified; Z79.899 Other long term (current) drug therapy

== ENCOUNTER 2017-03-18 16:11 | Emergency (ER) | payer SELFPAY ==
[2017-03-18] MEDS ORDERED: ALUMINUM & MAGNESIUM HYDROXIDE 30 ML UD PO ONE (16:41)
[2017-03-18] MEDS ORDERED: SIMETHICONE 80 MG TAB PO ONE (16:41)
--- NOTE | 2017-03-18 17:05 | RAD ---
EXAM DESCRIPTION: Abdomen Series CLINICAL HISTORY: 42 years Male ,epigastric discomfort, bloating COMPARISON: None. TECHNIQUE: Frontal view chest x-ray and two views of the abdomen. FINDINGS: The cardiomediastinal silhouette appears unremarkable. No consolidating infiltrates or pleural effusions. No free air is identified beneath the hemidiaphragms. No dilated loops of bowel to suggest obstruction. IMPRESSION: No acute plain film abnormality is identified. Electronically signed by: Anay Low 03/18/2017 5:03 PM CDT
[2017-03-18 17:13] VITALS: O2SAT 94
[2017-03-18] MEDS ORDERED: MAGNESIUM HYDROXIDE 30 ML UD PO ONE (19:29)
--- NOTE | 2017-03-18 19:45 | ED.PDOC ---
History of Present Illness - General Chief Complaint: GI Problem Stated Complaint: bloating Time Seen by Provider: 03/18/17 16:40 Source: patient Exam Limitations: no limitations - History of Present Illness Initial Comments: the patient is a 42-year-old male presenting to the emergency room secondary to Diego abdominal discomfort for last for 5 days. No point tenderness. No diarrhea. Sensation is more like bloating and distention. He has been belching a fair amount. no Vomiting. No fevers. No rebound or peritoneal signs. No difficulty with ambulating. Timing/Duration: 1 week Severity: mild Improving Factors: nothing Worsening Factors: nothing Associated Symptoms: denies symptoms Allergies/Adverse Reactions: Allergies NO KNOWN ALLERGY Allergy (Verified 10/28/16 15:56) Home Medications: Ambulatory Orders Sucralfate Tab [Carafate Tab] 1 gm PO QID #120 tab 03/18/17 Review of Systems - Review of Systems Constitutional: States: no symptoms reported EENTM: States: no symptoms reported Respiratory: States: no symptoms reported Cardiology: States: no symptoms reported Gastrointestinal/Abdominal: States: abdominal pain, nausea Genitourinary: States: no symptoms reported Musculoskeletal: States: no symptoms reported Skin: States: no symptoms reported Neurological: States: no symptoms reported All other Systems: No Change from Baseline Past Medical History (General) - Patient Medical History Hx Seizures: No Hx Stroke: No Hx Asthma: No Hx of COPD: No Hx Congestive Heart Failure: No Hx Pacemaker: No Hx Hypertension: Yes Hx Diabetes: No Hx MRSA: No Surgical History: no surgical history - Vaccination History Hx Tetanus, Diphtheria Vaccination: No - not sure when his last one was Hx Influenza Vaccination: Yes Hx Pneumococcal Vaccination: No - Social History Hx Tobacco Use: No Hx Alcohol Use: Yes - infrequent use Hx Substance Use: No Hx Substance Use Treatment: No Hx Depression: No Hx Physical Abuse: No Hx Emotional Abuse: No Family Medical History - Family History Father Family History: Unknown Living Status: Hx Family Cancer: - possible prostate cancer Physical Exam - Physical Exam General Appearance: Alert, Comfortable, No apparent distress Eye Exam: bilateral normal Ears, Nose, Throat: normal ENT inspection, normal pharynx, other - he patient does have some chronic slurring of speech. Neck: non-tender, supple Respiratory: chest non-tender, lungs clear, normal breath sounds, no respiratory distress, no accessory muscle use Cardiovascular/Chest: normal peripheral pulses, regular rate, rhythm, no edema Peripheral Pulses: radial,right: 2+, radial,left: 2+, dorsalis pedis,right: 2+, dorsalis pedis,left: 2+ Gastrointestinal/Abdominal: normal bowel sounds, non tender, soft, no pulsatile mass Rectal Exam: deferred Back Exam: normal inspection, no CVA tenderness Extremity: non-tender, no pedal edema, no calf tenderness, normal capillary refill Neurologic: alert, normal mood/affect, oriented x 3, other - the patient does have some chronic neurological deficits. Skin Exam: normal color Comments: Vital Signs - 24 hr 03/18/17 17:11 Temperature 97.8 F Pulse Rate [ 82 Left Brachial] Respiratory 20 Rate Blood Pressure 127/82 [Left Arm] O2 Sat by Pulse 94 L Oximetry Progress - Progress Progress: 03/18/17 19:50 the patient is a 42-year-old male presenting with abdominal discomfort that is most likely related to constipation and some mild gastritis. The patient is to pear picker some Maalox and take a tablespoon or 2 every 4 hours as needed to reduce discomfort. He'll be placed on Carafate 1 g by mouth 4 times a day for the next month. He is given one dose of milk of magnesia here tonight for the constipation. he needs to keep well-hydrated. He needs to follow-up with his primary care doctor next week. ER warnings were given.i also recommend that he stop taking the acidophilus. - Results/Orders Results/Orders: x-ray of the abdomen appears benign. No obstruction. No free air. He does have some constipation. Departure - Departure Clinical Impression: Gastritis Qualifiers: Gastritis type: unspecified gastritis Chronicity: acute Gastritis bleeding: without bleeding Qualified Code(s): K29.00 - Acute gastritis without bleeding Constipation Qualifiers: Constipation type: unspecified constipation type Qualified Code(s): K59.00 - Constipation, unspecified Disposition: Discharge to Home or Self Care Condition: Fair Departure Forms: ED Discharge - Pt. Copy, Patient Portal Self Enrollment Instructions: DI for Gastritis, DI for Constipation Diet: bland diet Activity: increase activity as tolerated Referrals: Marycarmen Jalloh NP [Primary Care Provider] - 1-2 Weeks Prescriptions: Sucralfate Tab [Carafate Tab] 1 gm PO QID #120 tab Home Medications: Ambulatory Orders Sucralfate Tab [Carafate Tab] 1 gm PO QID #120 tab 03/18/17 Additional Instructions: the patient is a 42-year-old male presenting with abdominal discomfort that is most likely related to constipation and some mild gastritis. The patient is to pear picker some Maalox and take a tablespoon or 2 every 4 hours as needed to reduce discomfort. He'll be placed on Carafate 1 g by mouth 4 times a day for the next month. He is given one dose of milk of magnesia here tonight for the constipation. he needs to keep well-hydrated. He needs to follow-up with his primary care doctor next week. ER warnings were given.i also recommend that he stop taking the acidophilus.
[2017-03-18 21:13] VITALS: BP 122/82; TEMP 98
== END 2017-03-18 20:45 | disposition home or self-care (01) ==
LOC: ER 16:11
DX: K29.00 Acute gastritis without bleeding (principal); K59.00 Constipation, unspecified

== ENCOUNTER 2017-05-14 02:26 | Emergency (ER) | payer SELFPAY ==
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
[2017-05-14] MEDS ORDERED: NAPROXEN 500 MG TAB PO ONE (02:55)
[2017-05-14] MEDS ORDERED: PROMETHAZINE HCL 25 MG TAB PO ONE (02:55)
[2017-05-14] MEDS ORDERED: BACLOFEN 10 MG TAB PO ONE (02:56)
[2017-05-14 03:13] VITALS: BP 149/96; TEMP 98.4; O2SAT 96
== END 2017-05-14 03:16 | disposition home or self-care (01) ==
LOC: ER 02:26
DX: R51 Headache (principal)

== ENCOUNTER 2017-09-01 18:34 | Emergency (ER) | payer MEDICAID ==
[2017-09-01] MEDS ORDERED: LACTATED RINGERS 1,000 ML IVS ONE (20:21)
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
[2017-09-01 23:06] VITALS: O2SAT 96
[2017-09-01 23:13] VITALS: BP 175/107; TEMP 98.5
[2017-09-01] MEDS ORDERED: amLODIPine BESYLATE 5 MG TAB PO ONE (23:15)
[2017-09-01] MEDS ORDERED: LISINOPRIL 10 MG TAB PO ONE (23:15)
== END 2017-09-01 23:30 | disposition home or self-care (01) ==
LOC: ER 18:34
DX: R53.81 Other malaise (principal); R25.2 Cramp and spasm; I10 Essential (primary) hypertension
CPT/HCPCS: 36415; 80048; 80076; 80307; 81001; 82550; 82553; 84484; 85025; 85610; 85730; 93005; J7120

== ENCOUNTER 2017-09-11 09:16 | Emergency (ER) | payer MEDICAID ==
[2017-09-11 09:33] VITALS: TEMP 98.4
--- NOTE | 2017-09-11 09:43 | ED.PDOC ---
History of Present Illness - General Chief Complaint: Headache Stated Complaint: Migraine Time Seen by Provider: 09/11/17 09:40 Source: patient, RN notes reviewed Additional Information: 42 YEAR OLD COMPLAINTS OF HEADACHE RIGHT SIDE ONSET 2 DAYS NO ASSOCIATED FEVER CHILLS HAS NO TRAUMA NO PHOTOPHOBIA NO SKIN RASH NO SINUS SYMPTOMS NO DENTAL PAIN TOOK ADVIL BUT NO RELIEF - History of Present Illness Timing/Duration: 4-6 hours Quality: mild, constant Recent Head Trauma: no recent headache/trauma, chronic headaches Improving Factors: nothing Worsening Factors: nothing Allergies/Adverse Reactions: Allergies NO KNOWN ALLERGY Allergy (Verified 09/01/17 19:06) Home Medications: Ambulatory Orders Sucralfate Tab [Carafate Tab] 1 gm PO QID #120 tab 03/18/17 Baclofen 10 mg PO BID #10 tab 05/14/17 Baclofen 10 mg PO BID #30 tab 09/01/17 Lisinopril 10 mg PO BEDTIME #30 tab 09/01/17 Review of Systems - Review of Systems Constitutional: States: no symptoms reported EENTM: States: no symptoms reported Respiratory: States: no symptoms reported Cardiology: States: no symptoms reported Gastrointestinal/Abdominal: States: no symptoms reported Genitourinary: States: no symptoms reported Skin: States: no symptoms reported Neurological: States: see HPI Endocrine: States: no symptoms reported Hematologic/Lymphatic: States: no symptoms reported Past Medical History (General) - Patient Medical History Hx Seizures: No Hx Stroke: No Hx Dementia: No Hx Asthma: No Hx of COPD: No Hx Cardiac Disorders: No Hx Congestive Heart Failure: No Hx Pacemaker: No Hx Hypertension: Yes Hx Thyroid Disease: No Hx Diabetes: No Hx Gastroesophageal Reflux: No Hx Renal Disease: No Hx Cancer: No Hx of HIV: No Hx Hepatitis C: No Hx MRSA: No - Vaccination History Hx Tetanus, Diphtheria Vaccination: No Hx Influenza Vaccination: Yes Hx Pneumococcal Vaccination: No - Social History Hx Tobacco Use: No Hx Alcohol Use: Yes - daily use Hx Substance Use: No Hx Substance Use Treatment: No Hx Depression: No Hx Physical Abuse: No Hx Emotional Abuse: No Family Medical History - Family History Father Family History: Unknown Living Status: Hx Family Cancer: - possible prostate cancer Physical Exam - Physical Exam General Appearance: Alert, Comfortable Eyes, Ears, Nose, Throat Exam: PERRL/EOMI, normal ENT inspection, TMs normal, pharynx normal Neck: non-tender, full range of motion, supple Cardiovascular/Chest: normal peripheral pulses, regular rate, rhythm, no edema, no gallop, no JVD, no murmur Respiratory: chest non-tender, lungs clear, normal breath sounds, no respiratory distress Gastrointestinal/Abdominal: normal bowel sounds, non tender, soft, no organomegaly Extremity: normal range of motion, non-tender, normal inspection, no pedal edema , no calf tenderness 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 Copy, Patient Portal Self Enrollment Instructions: DI for Headache Diet: resume usual diet Activity: increase activity as tolerated Referrals: Abebe Anders MD [Primary Care Provider] - 1-2 Weeks Home Medications: Ambulatory Orders Sucralfate Tab [Carafate Tab] 1 gm PO QID #120 tab 03/18/17 Baclofen 10 mg PO BID #10 tab 05/14/17 Baclofen 10 mg PO BID #30 tab 09/01/17 Lisinopril 10 mg PO BEDTIME #30 tab 09/01/17
[2017-09-11] MEDS ORDERED: KETOROLAC TROMETHAMINE INJ 60 MG/2 ML VIAL IM ONE (09:50)
[2017-09-11] MEDS ORDERED: PROMETHAZINE HCL INJ 25 MG/ML VIAL IM PRN (09:51)
[2017-09-11 10:32] VITALS: BP 158/96; O2SAT 95
== END 2017-09-11 10:31 | disposition home or self-care (01) ==
LOC: ER 09:16
DX: G43.909 Migraine, unspecified, not intractable, without status migrainosus (principal); I10 Essential (primary) hypertension
CPT/HCPCS: J1885; J2550

== ENCOUNTER → 2018-04-07 | Outpatient (CLI) | payer OTHER | LOC: YCFC.O 08:42 | PROVIDERS: ATTEND Family Medicine | DX: Z00.00 Encounter for general adult medical examination without abnormal findings (principal); I10 Essential (primary) hypertension; R53.83 Other fatigue ==

== ENCOUNTER 2018-04-14 09:04 | Emergency (ER) | payer OTHER ==
[2018-04-14] MEDS ORDERED: SODIUM CHLORIDE 0.9% 1000ML 1,000 ML IVS ONE (09:25)
--- NOTE | 2018-04-14 09:28 | ED.PDOC ---
History of Present Illness - General Chief Complaint: General Time Seen by Provider: 04/14/18 09:10 Source: patient - History of Present Illness Initial Comments: THIS PATIENT JUST HAD LABORATORY AND AN ABDOMINAL SONOGRAM. HE PRESENTS TO THE ED BECAUSE HE IS WEAK. THE PATIENT IS A [employer] HIST[employer] HE JUST VOICES THAT HE IS WEAK. Timing/Duration: 1 week Severity: moderate Improving Factors: nothing Worsening Factors: nothing Associated Symptoms: denies symptoms Allergies/Adverse Reactions: Allergies NO KNOWN ALLERGY Allergy (Verified 09/01/17 19:06) Home Medications: Ambulatory Orders Sucralfate Tab [Carafate Tab] 1 gm PO QID #120 tab 03/18/17 Baclofen 10 mg PO BID #10 tab 05/14/17 Baclofen 10 mg PO BID #30 tab 09/01/17 Lisinopril 10 mg PO BEDTIME #30 tab 09/01/17 Review of Systems - Review of Systems Constitutional: States: weakness EENTM: States: no symptoms reported Respiratory: States: no symptoms reported Cardiology: States: no symptoms reported Gastrointestinal/Abdominal: States: no symptoms reported Genitourinary: States: no symptoms reported Musculoskeletal: States: no symptoms reported Skin: States: no symptoms reported Neurological: States: no symptoms reported Endocrine: States: no symptoms reported Hematologic/Lymphatic: States: no symptoms reported All other Systems: Reviewed and Negative Past Medical History (General) - Patient Medical History Hx Seizures: No Hx Stroke: No Hx Dementia: No Hx Asthma: No Hx of COPD: No Hx Cardiac Disorders: No Hx Congestive Heart Failure: No Hx Pacemaker: No Hx Hypertension: Yes Hx Thyroid Disease: No Hx Diabetes: No Hx Gastroesophageal Reflux: No Hx Renal Disease: No Hx Cancer: No Hx of HIV: No Hx Hepatitis C: No Hx MRSA: No - Vaccination History Hx Tetanus, Diphtheria Vaccination: No Hx Influenza Vaccination: Yes Hx Pneumococcal Vaccination: No - Social History Hx Tobacco Use: No Hx Alcohol Use: Yes - daily use Hx Substance Use: No Hx Substance Use Treatment: No Hx Depression: No Hx Physical Abuse: No Hx Emotional Abuse: No Family Medical History - Family History Father Family History: Unknown Living Status: Hx Family Cancer: - possible prostate cancer Physical Exam - Physical Exam General Appearance: Alert, No apparent distress Eye Exam: bilateral normal Ears, Nose, Throat: hearing grossly normal Neck: non-tender, full range of motion, supple Respiratory: chest non-tender, lungs clear, normal breath sounds, no respiratory distress, no accessory muscle use Cardiovascular/Chest: normal peripheral pulses, regular rate, rhythm Peripheral Pulses: radial,right: 2+, radial,left: 2+ Gastrointestinal/Abdominal: normal bowel sounds, non tender, soft, no organomegaly, no pulsatile mass Rectal Exam: deferred Back Exam: normal inspection Extremity: normal range of motion, non-tender, normal inspection Neurologic: alert, normal mood/affect Skin Exam: normal color Progress - Progress Progress: 04/14/18 10:19 OTHER THAN SLIGHT ELEVATION OF THE TRANSAMINASES THE LAB IS NORMAL. Departure - Departure Clinical Impression: Generalized weakness Time of Disposition: 10:20 Disposition: Discharge to Home or Self Care Condition: Good Departure Forms: ED Discharge - Pt. Copy, Patient Portal Self Enrollment Diet: resume usual diet Referrals: Froylan Styles MD [Primary Care Provider] - 1-2 Weeks Home Medications: Ambulatory Orders Sucralfate Tab [Carafate Tab] 1 gm PO QID #120 tab 03/18/17 Baclofen 10 mg PO BID #10 tab 05/14/17 Baclofen 10 mg PO BID #30 tab 09/01/17 Lisinopril 10 mg PO BEDTIME #30 tab 09/01/17
[2018-04-14 09:34] VITALS: TEMP 98.7
[2018-04-14 11:02] VITALS: BP 158/95; O2SAT 96
== END 2018-04-14 11:00 | disposition home or self-care (01) ==
LOC: ER 09:04
DX: R53.1 Weakness (principal); I10 Essential (primary) hypertension
CPT/HCPCS: 36415; 80053; 81001; 85025; J7030

== ENCOUNTER → 2018-04-14 | Outpatient (CLI) | payer OTHER ==
--- NOTE | 2018-04-14 09:54 | US ---
Procedure: US LIVER Exam Date: 04/14/2018 Ordering Provider: SONIA POLANCO Clinical Indication: ELEVATED LIVER ENZYMES Comparison: None Technique: Real-time ultrasonography was obtained over the right upper quadrant and phone representative images were recorded. Findings: There are no gallstones within the gallbladder lumen. There are multiple gallbladder polyps, largest measuring 5 mm. There is no gallbladder wall thickening or pericholecystic fluid. Negative Li's. The common bile duct is normal in size measuring 5 mm. The liver is enlarged measuring up to 16.5 cm. There is diffuse increased echogenicity of the liver consistent with fatty infiltration. There is no hepatic mass. There is no intrahepatic ductal dilatation. Visualized pancreas is unremarkable. No hydronephrosis in the right kidney. There is no ascites. Impression: 1. Hepatomegaly and hepatic steatosis. 2. Gallbladder polyps. Electronically signed by: Miki Jarrell MD 04/14/2018 9:52 AM CDT
== END ==
LOC: YCFC.O 08:12
PROVIDERS: ATTEND Family Medicine
DX: R74.8 Abnormal levels of other serum enzymes (principal); K76.0 Fatty (change of) liver, not elsewhere classified; K82.4 Cholesterolosis of gallbladder

== ENCOUNTER 2018-05-06 19:01 | Emergency (ER) | payer OTHER ==
[2018-05-06] MEDS ORDERED: ONDANSETRON INJ 4 MG/2 ML VIAL IV ONE (19:14)
[2018-05-06] MEDS ORDERED: ASPIRIN (CHEWABLE) 81 MG TAB PO ONE (19:15)
--- NOTE | 2018-05-06 19:33 | RAD ---
EXAM DESCRIPTION: Chest,1 View CLINICAL HISTORY: 43 years Male, chest pain COMPARISON: Chest x-ray August 30, 2016 FINDINGS: No consolidation. No pneumothorax. No significant pleural effusion. Cardiomediastinal silhouette is unremarkable. Osseous structures are unremarkable. IMPRESSION: No acute findings. Electronically signed by: Stephan Isabel MD 05/06/2018 7:31 PM DIRECTOR [employer]
[2018-05-06] MEDS: NITROGLYCERIN 0.4 MG 25 EA TAB SL ONE ×2 (19:34→20:06)
--- NOTE | 2018-05-06 19:34 | ED.PDOC ---
History of Present Illness - General Chief Complaint: Chest Pain/[place] Stated Complaint: Chest pain, dyspnea, nausea x 3 days Time Seen by Provider: 05/06/18 19:32 Source: patient - History of Present Illness Initial Comments: David Bruno 43 y/o male stated that he had been having sharp chest pains on and off for the last 3 days radiating to both arms also felt SOB and nausea with it. Timing/Duration: days - 3 days Severity/Quality: sharp Location: central Chest Pain Radiation: shoulders Activities at Onset: none Prior Chest Pain/Cardiac Workup: no prior chest pain Improving Factors: nothing Worsening Factors: nothing Nitro Today/Relief: 0.4 mg x 1 Aspirin Treatment Today: 325 mg x 1 Associated Symptoms: nausea/vomiting, shortness of breath Allergies/Adverse Reactions: Allergies NO KNOWN ALLERGY Allergy (Verified 09/01/17 19:06) Review of Systems - Review of Systems Constitutional: States: no symptoms reported EENTM: States: no symptoms reported Respiratory: States: no symptoms reported Cardiology: States: see HPI Gastrointestinal/Abdominal: States: no symptoms reported Genitourinary: States: no symptoms reported Musculoskeletal: States: no symptoms reported Skin: States: no symptoms reported Neurological: States: no symptoms reported Endocrine: States: no symptoms reported Hematologic/Lymphatic: States: no symptoms reported Past Medical History (General) - Patient Medical History Hx Seizures: No Hx Stroke: No Hx Dementia: No Hx Asthma: No Hx of COPD: No Hx Cardiac Disorders: No Hx Congestive Heart Failure: No Hx Pacemaker: No Hx Hypertension: Yes Hx Thyroid Disease: No Hx Diabetes: No Hx Gastroesophageal Reflux: No Hx Renal Disease: No Hx Cancer: No Hx of HIV: No Hx Hepatitis C: No Hx MRSA: No Surgical History: no surgical history - Vaccination History Hx Tetanus, Diphtheria Vaccination: No Hx Influenza Vaccination: Yes Hx Pneumococcal Vaccination: No - Social History Hx Tobacco Use: No Hx Alcohol Use: Yes - daily use Hx Substance Use: No Hx Substance Use Treatment: No Hx Depression: No Hx Physical Abuse: No Hx Emotional Abuse: No - Activities of Daily Living Patient Lives Alone: Yes Family Medical History - Family History Father Family History: Unknown Living Status: Hx Family Cancer: - possible prostate cancer Physical Exam - Physical Exam General Appearance: Alert, Comfortable, No apparent distress Eyes, Ears, Nose, Throat Exam: normal ENT inspection, pharynx normal Neck: non-tender, full range of motion, supple, normal inspection Respiratory: chest non-tender, lungs clear, normal breath sounds, no respiratory distress Cardiovascular/Chest: normal peripheral pulses, regular rate, rhythm, no murmur Peripheral Pulses: radial,right: 2+, radial,left: 2+ Gastrointestinal/Abdominal: normal bowel sounds, non tender, soft, no organomegaly Neurologic: alert, oriented x 3 Skin Exam: normal color, warm/dry Progress - Progress Progress: 05/06/18 20:46 Vital Signs - 8 hr 05/06/18 05/06/18 05/06/18 19:13 19:38 20:02 Temperature 98.5 F Pulse Rate [ 92 H 92 H 90 monitor] Respiratory 20 20 20 Rate Blood Pressure 97/68 141/81 [Left Arm] O2 Sat by Pulse 96 94 L Oximetry 05/06/18 22:34 D/W patient test result and advised to stay in hospital -obs for further cardiac enzyme studies - Results/Orders Results/Orders: 05/06/18 19:14 IV Care:Saline Lock per Protoc QSHIFT Telemetry .ONCE EKG Stat Pulse Ox Stat 05/06/18 19:37 D-DIMER,QUANTITATIVE Stat Laboratory Results - last 24 hr 05/06/18 05/06/18 05/06/18 19:37 19:37 20:47 WBC 8.2 RBC 4.62 L Hgb 14.7 Hct 42.9 MCV 92.9 MCH 31.8 H MCHC 34.3 RDW 13.5 Plt Count 232 MPV 8.2 Absolute Neuts (auto) 5.20 Absolute Lymphs (auto) 2.10 Absolute Monos (auto) 0.60 Absolute Eos (auto) 0.20 Absolute Basos (auto) 0.10 Neutrophils % 63.7 Lymphocytes % 25.4 Monocytes % 7.7 Eosinophils % 2.4 Basophils % 0.8 PT 9.6 INR 0.96 PTT (SP) 23.9 Sodium 136 Potassium 4.0 Chloride 100 L Carbon Dioxide 27 Anion Gap 13.0 BUN 19 H Creatinine 1.33 H BUN/Creatinine Ratio 14.3 Random Glucose 122 H Serum Osmolality 275.5 Calcium 9.1 Magnesium 1.6 L Total Bilirubin 0.4 Direct Bilirubin < 0.1 Indirect Bilirubin 0.3 AST 38 ALT 71 H Alkaline Phosphatase 66 Creatine Kinase 267 H* CK-MB (CK-2) 2.4 CK-MB (CK-2) % 0.90 Troponin I < 0.02 B-Natriuretic Peptide 16.7 Serum Total Protein 7.0 Albumin 4.0 Urine Color Urine Appearance Urine pH Ur Specific [place] Urine Protein Urine Glucose (UA) Urine Ketones Urine Blood Urine Nitrite Urine Bilirubin Urine Urobilinogen Ur Leukocyte Esterase Urine RBC Urine WBC Ur Epithelial Cells Urine Bacteria Urine Opiates Screen Negative Urine Barbiturates Negative Ur Phencyclidine Scrn Negative U Amphetamin/Meth Scrn Negative U Benzodiazepines Scrn Negative U Cocaine Metab Screen Negative U Cannabinoids Screen Negative 05/06/18 05/06/18 20:50 21:00 WBC RBC Hgb Hct MCV MCH MCHC RDW Plt Count MPV Absolute Neuts (auto) Absolute Lymphs (auto) Absolute Monos (auto) Absolute Eos (auto) Absolute Basos (auto) Neutrophils % Lymphocytes % Monocytes % Eosinophils % Basophils % PT INR PTT (SP) Sodium Potassium Chloride Carbon Dioxide Anion Gap BUN Creatinine BUN/Creatinine Ratio Random Glucose Serum Osmolality Calcium Magnesium Total Bilirubin Direct Bilirubin Indirect Bilirubin AST ALT Alkaline Phosphatase Creatine Kinase CK-MB (CK-2) CK-MB (CK-2) % Troponin I < 0.02 B-Natriuretic Peptide Serum Total Protein Albumin Urine Color Yellow Urine Appearance Clear Urine pH 7.5 Ur Specific [place] 1.015 Urine Protein Negative Urine Glucose (UA) Negative Urine Ketones Negative Urine Blood Negative Urine Nitrite Negative Urine Bilirubin Negative Urine Urobilinogen 0.2 Ur Leukocyte Esterase Negative Urine RBC 0 Urine WBC 0 Ur Epithelial Cells 0 Urine Bacteria 0 Urine Opiates Screen Urine Barbiturates Ur Phencyclidine Scrn U Amphetamin/Meth Scrn U Benzodiazepines Scrn U Cocaine Metab Screen U Cannabinoids Screen - EKG/XRAY/CT EKG: Sinus, no ST T wave changes, Unchanged from -EKG's Comments: XRAY: chest - no acute abnormalities - Additional EKG/XRAY/Consults EKG #2: Sinus, no ST T wave changes, Unchanged from and 01 Sep 2017 Comments: Departure - Departure Clinical Impression: Renal insufficiency, mild, Hypomagnesemia Chest pain Qualifiers: Chest pain type: unspecified Qualified Code(s): R07.9 - Chest pain, unspecified Time of Disposition: 22:37 Disposition: Admit Patient Condition: Fair Departure Forms: Patient Portal Self Enrollment Referrals: Froylan Styles MD [Primary Care Provider] - 1-2 Weeks Decision To Admit - Decistion To Admit Decision to Admit Reason: Admit from ER Decision to Admit Date: 05/06/18 - D/W Aman Forbes-ANP/Hospitalist Decision to Admit Time: 22:32
[2018-05-06] MEDS ORDERED: SODIUM CHLORIDE 0.9% 500ML 500 ML IVS ONE (20:43)
[2018-05-06] MEDS ORDERED: ALUM & MAG HYDROX-SIMETHICONE 30 ML, LIDOCAINE VISCOUS 2% 15 ML PO ONE ×4 (23:44→23:57)
[2018-05-06] MEDS ORDERED: LIDOCAINE HCL 2% (MOUTH-THROAT) 15 ML UD ONE (23:45)
[2018-05-06] MEDS ORDERED: ALUM & MAG HYDROX-SIMETHICONE 30 ML UD ONE (23:45)
[2018-05-06] MEDS ORDERED: LABETALOL INJ 5 MG/ML VIAL IV ONE (23:56)
[2018-05-07 00:39] VITALS: O2SAT 97
[2018-05-07] MEDS ORDERED: ENOXAPARIN SODIUM 100 MG/ML SYG SUBCU ONE (00:53)
[2018-05-07 01:07] VITALS: BP 168/104; TEMP 97.8
== END 2018-05-07 01:15 | disposition still patient (30) ==
LOC: ER 19:01 → MS 22:50 → UNDOADMOB 22:50
DX: R07.9 Chest pain, unspecified (principal); E83.42 Hypomagnesemia; N28.9 Disorder of kidney and ureter, unspecified; R06.02 Shortness of breath; R11.2 Nausea with vomiting, unspecified; I10 Essential (primary) hypertension
CPT/HCPCS: 36415; 71045; 80048; 80076; 80307; 81001; 82550; 82553; 83880; 84484; 85025; 85379; 85610; 85730; 93005; J1650; J2405; J7040

== ENCOUNTER 2018-05-11 19:55 | Emergency (ER) | payer OTHER ==
--- NOTE | 2018-05-11 21:00 | ED.PDOC ---
History of Present Illness - General Chief Complaint: Behavioral / Psych Stated Complaint: chest discomfort, dizzy, shaky Time Seen by Provider: 05/11/18 20:50 Source: patient Exam Limitations: no limitations - History of Present Illness Initial Comments: HE WAS RECENTLY DISCHARGED FROM [facility] FOR CHEST PAIN. HE STATES YHAT HE WAS ON A NITROGLYCERIN DRIP AND HAS A BITTER TASTE ON HIS MOUTH. HE ALSO VOICES THAT HE HAS MILD CHEST DISCOMFORT AND IS CONCERT BECAUSE HE SUFFERS OF HIGH CHOLESTEROL. Timing/Duration: 7-24 hours Severity: mild Location: central, epigastric Activities at Onset: none Improving Factors: nothing Worsening Factors: nothing Nitro Today/Relief: no nitro taken today Aspirin Treatment Today: no aspirin today Associated Symptoms: denies symptoms Allergies/Adverse Reactions: Allergies NO KNOWN ALLERGY Allergy (Verified 09/01/17 19:06) Review of Systems - Review of Systems Constitutional: States: no symptoms reported EENTM: States: no symptoms reported Respiratory: States: no symptoms reported Cardiology: States: chest pain Gastrointestinal/Abdominal: States: abdominal pain Genitourinary: States: no symptoms reported Musculoskeletal: States: no symptoms reported Skin: States: no symptoms reported Neurological: States: no symptoms reported Endocrine: States: no symptoms reported Hematologic/Lymphatic: States: no symptoms reported Past Medical History (General) - Patient Medical History Hx Seizures: No Hx Stroke: No Hx Dementia: No Hx Asthma: No Hx of COPD: No Hx Cardiac Disorders: No Hx Congestive Heart Failure: No Hx Pacemaker: No Hx Hypertension: Yes Hx Thyroid Disease: No Hx Diabetes: No Hx Gastroesophageal Reflux: No Hx Renal Disease: No Hx Cancer: No Hx of HIV: No Hx Hepatitis C: No Hx MRSA: No - Vaccination History Hx Tetanus, Diphtheria Vaccination: No Hx Influenza Vaccination: Yes Hx Pneumococcal Vaccination: No - Social History Hx Tobacco Use: No Hx Alcohol Use: Yes - daily use Hx Substance Use: No Hx Substance Use Treatment: No Hx Depression: No Hx Physical Abuse: No Hx Emotional Abuse: No - Triage Comment ED Triage Comment: Pt reports having chest discomfort. Pt states pain has continued since he was discharged from [facility] on wednesday. Pt report pain as burning sensation and "feel like board sitting on my chest." Also reports shortness of breath. Pt concerned of needing to have heart surgery. Pt is anxious and has a mental disability. Pt reports he was given meidications to take for his high BP, but unable to name or list them. Family Medical History - Family History Father Family History: Unknown Living Status: Hx Family Cancer: - possible prostate cancer Physical Exam - Physical Exam General Appearance: Anxious, Well Developed, Well Groomed, Well Hydrated, Well Nourished Eyes, Ears, Nose, Throat Exam: PERRL/EOMI, normal ENT inspection Neck: non-tender, full range of motion, supple, normal inspection Respiratory: chest non-tender, lungs clear, normal breath sounds, no respiratory distress, no accessory muscle use Cardiovascular/Chest: normal peripheral pulses, regular rate, rhythm, no edema, no gallop, no JVD, no murmur Peripheral Pulses: radial,right: 2+, radial,left: 2+ Gastrointestinal/Abdominal: normal bowel sounds, non tender, soft, no organomegaly, no pulsatile mass Neurologic: no motor/sensory deficits, alert, normal mood/affect Skin Exam: normal color, warm/dry Lymphatic: no adenopathy Progress - Progress Progress: 05/11/18 21:58 05/11/18 21:00 EKG STAT Laboratory Results - last 24 hr 05/11/18 05/11/18 21:03 21:03 WBC 8.5 RBC 4.56 L Hgb 14.6 Hct 42.6 MCV 93.6 MCH 32.0 H MCHC 34.2 RDW 13.6 Plt Count 225 MPV 8.0 Absolute Neuts (auto) 5.10 Absolute Lymphs (auto) 2.40 Absolute Monos (auto) 0.80 Absolute Eos (auto) 0.20 Absolute Basos (auto) 0.00 Neutrophils % 59.7 Lymphocytes % 27.7 Monocytes % 9.5 H Eosinophils % 2.6 Basophils % 0.5 Sodium 133 L Potassium 4.4 Chloride 97 L Carbon Dioxide 29 Anion Gap 11.4 L BUN 17 Creatinine 1.29 BUN/Creatinine Ratio 13.2 Random Glucose 96 Serum Osmolality 267.8 L Calcium 9.6 Total Bilirubin 0.5 AST 52 H ALT 90 H Alkaline Phosphatase 58 Creatine Kinase 311 H* CK-MB (CK-2) 2.7 CK-MB (CK-2) % Not Reportable Troponin I < 0.02 Serum Total Protein 7.3 Albumin 4.3 Globulin 3.0 Albumin/Globulin Ratio 1.4 - Results/Orders Results/Orders: CXR: NO ACUTE FINDINGS EKG: HR OF 78, VT INTERVAL OF 134, QRS OF 98, QTC OF 405, AXES OF 38 DEGREES> IMPRESSION: SINUS RHYTHM, NO ACUTE INJURY PATTERN Departure - Departure Clinical Impression: Chest wall pain Time of Disposition: 22:01 Disposition: Discharge to Home or Self Care Condition: Good Departure Forms: ED Discharge - Pt. Copy, Patient Portal Self Enrollment Instructions: DI for Chest Pain, DI for Psychosis Referrals: Froylan Styles MD [Primary Care Provider] - 1-2 Weeks
--- NOTE | 2018-05-11 21:17 | RAD ---
EXAM DESCRIPTION: Chest,1 View CLINICAL HISTORY: 43 years Male, chest pain, short of breath Comparison: 05/06/2018 FINDINGS: Single AP view of the chest Cardiomediastinal silhouette is within normal limits. No focal lung consolidation. No pleural effusion. No pneumothorax. No acute osseous finding. IMPRESSION: No acute chest finding. 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
[2018-05-11 21:39] VITALS: O2SAT 97
[2018-05-11 22:21] VITALS: BP 142/87; TEMP 98
== END 2018-05-11 22:10 | disposition home or self-care (01) ==
LOC: ER 19:55
DX: R07.1 Chest pain on breathing (principal); R06.02 Shortness of breath; I10 Essential (primary) hypertension; E78.00 Pure hypercholesterolemia, unspecified

== ENCOUNTER → 2018-05-18 | Outpatient (CLI) | payer OTHER | LOC: YCFC.O 15:22 | PROVIDERS: ATTEND Family Medicine | DX: E78.5 Hyperlipidemia, unspecified (principal); I10 Essential (primary) hypertension; R74.8 Abnormal levels of other serum enzymes ==

== ENCOUNTER 2018-06-11 07:30 | Emergency (ER) | payer OTHER ==
[2018-06-11 07:41] VITALS: TEMP 97.5
--- NOTE | 2018-06-11 07:50 | ED.PDOC ---
History of Present Illness - General Chief Complaint: GI Problem Stated Complaint: blood in stool Time Seen by Provider: 06/11/18 07:47 Information Source: patient Exam Limitations: no limitations - History of Present Illness Initial Comments: David Bruno 43 y/o male stated that he had intermittent blood in stool for the last 4 days every time he defacates.No diarrhea,no abdominal pain,no weight loss,or loss of appetite.No hematemesis.Denies taking blood thinners. Abdominal Pain Onset Location: other - NO ABDOMINAL PAIN Pain Radiation: no radiation Quality: moderate Timing/Duration: days - 4 Improving Factors: nothing Worsening Factors: nothing Associated Symptoms: denies symptoms Review of Systems - Review of Systems Gastrointestinal/Abdominal: States: see HPI All other Systems: Reviewed and Negative, No Change from Baseline Past Medical History (General) - Patient Medical History Hx Seizures: No Hx Stroke: No Hx Dementia: No Hx Asthma: No Hx of COPD: No Hx Cardiac Disorders: No Hx Congestive Heart Failure: No Hx Pacemaker: No Hx Hypertension: Yes Hx Thyroid Disease: No Hx Diabetes: No Hx Gastroesophageal Reflux: No Hx Renal Disease: No Hx Cancer: No Hx of HIV: No Hx Hepatitis C: No Hx MRSA: No Surgical History: no surgical history - Vaccination History Hx Tetanus, Diphtheria Vaccination: No Hx Influenza Vaccination: No Hx Pneumococcal Vaccination: No - Social History Hx Tobacco Use: No Hx Alcohol Use: Yes - daily use Hx Substance Use: No Hx Substance Use Treatment: No Hx Depression: No Hx Physical Abuse: No Hx Emotional Abuse: No Family Medical History - Family History Father Family History: Unknown Living Status: Hx Family Cancer: - possible prostate cancer Physical Exam - Physical Exam General Appearance: Alert, Comfortable, No apparent distress Eyes, Ears, Nose, Throat Exam: PERRL/EOMI, normal ENT inspection, pharynx normal Neck: supple, normal inspection Respiratory: chest non-tender, lungs clear, normal breath sounds Cardiovascular/Chest: normal peripheral pulses, regular rate, rhythm, no murmur Peripheral Pulses: No deficit, 1+ Gastrointestinal/Abdominal: normal bowel sounds, non tender, soft, no organomegaly Male Genitalia: normal genitalia, normal prostate Rectal Exam: normal rectal tone Back Exam: normal inspection, no CVA tenderness, no vertebral tenderness Extremity: no pedal edema, no calf tenderness Neurologic: alert, oriented x 3 Lymphatic: no adenopathy Special Observations: No evidence of discomfort Progress - Progress Progress: 06/11/18 07:54 Vital Signs - 24 hr 06/11/18 07:38 Temperature 97.5 F L Pulse Rate [ 78 Left Brachial] Respiratory 16 Rate Blood Pressure 151/94 [Left Arm] O2 Sat by Pulse 98 Oximetry - Results/Orders Results/Orders: Vital Signs - 8 hr 06/11/18 06/11/18 07:38 08:30 Temperature 97.5 F L Pulse Rate [ 78 77 Left Brachial] Respiratory 16 20 Rate Blood Pressure 151/94 159/101 [Left Arm] O2 Sat by Pulse 98 97 Oximetry Laboratory Results - last 24 hr 06/11/18 06/11/18 06/11/18 08:08 08:08 08:08 WBC 8.6 RBC 4.45 L Hgb 14.1 Hct 42.0 MCV 94.2 H MCH 31.6 H MCHC 33.7 RDW 14.9 H Plt Count 262 MPV 8.0 Absolute Neuts (auto) 5.70 Absolute Lymphs (auto) 2.20 Absolute Monos (auto) 0.60 Absolute Eos (auto) 0.10 Absolute Basos (auto) 0.10 Neutrophils % 66.2 Lymphocytes % 25.6 Monocytes % 6.5 Eosinophils % 0.7 L Basophils % 1.0 Sodium 136 Potassium 4.0 Chloride 98 L Carbon Dioxide 26 Anion Gap 16.0 BUN 20 H Creatinine 1.05 BUN/Creatinine Ratio 19.0 Random Glucose 98 Serum Osmolality 274.5 L Calcium 10.6 H Total Bilirubin 0.4 AST 33 ALT 51 Alkaline Phosphatase 64 Serum Total Protein 7.8 Albumin 4.5 Globulin 3.3 Albumin/Globulin Ratio 1.4 Stool Occult Blood Positive Departure - Departure Clinical Impression: Heme positive stool Time of Disposition: 08:52 Disposition: Discharge to Home or Self Care Condition: Fair Departure Forms: ED Discharge - Pt. Copy, Patient Portal Self Enrollment Instructions: Bloody Stools, Adult (DC) Referrals: Froylan Styles MD [Primary Care Provider] - 1-2 Weeks Prescriptions: Hydrocortisone Acetate W/ Pram [Proctofoam Hc 1-1 %] 1 aer [place] BID 14 Days #1 aer Methylcellulose (Laxative) [Citrucel Fiber Laxative] 1 pow PO BID #30 pow Pantoprazole Tablet [Protonix] 40 mg PO ACBK 30 Days tab Home Medications: Ambulatory Orders Amlodipine Besylate 5 mg PO DAILY 06/11/18 Atorvastatin Calcium [Lipitor] 10 mg PO BEDTIME 06/11/18 Hydrocortisone Acetate W/ Pram [Proctofoam Hc 1-1 %] 1 aer [place] BID 14 Days #1 aer 06/11/18 Losartan Potassium 100 mg PO DAILY 06/11/18 Methylcellulose (Laxative) [Citrucel Fiber Laxative] 1 pow PO BID #30 pow 06/11/18 Omeprazole [Prilosec Cap] 20 mg PO ACBK 06/11/18 Pantoprazole Tablet [Protonix] 40 mg PO ACBK 30 Days tab 06/11/18 Additional Instructions: Continue with all home medications;Follow up with primary Md 13 Jun 2018-Dr. Styles for Gastroenterology consult;Return to ER as needed
[2018-06-11] MEDS ORDERED: PANTOPRAZOLE SODIUM TAB 40 MG PO ONE (07:53)
[2018-06-11 09:14] VITALS: O2SAT 95
[2018-06-11 10:14] VITALS: BP 125/81
== END 2018-06-11 10:14 | disposition home or self-care (01) ==
LOC: ER 07:30
DX: K92.1 Melena (principal); I10 Essential (primary) hypertension

== ENCOUNTER → 2018-07-11 | Outpatient (CLI) | payer OTHER | LOC: LAB.O 14:56 | PROVIDERS: ATTEND Family Medicine | DX: I10 Essential (primary) hypertension (principal) ==

== ENCOUNTER → 2018-08-09 | Outpatient (CLI) | payer OTHER | LOC: LAB.O 08:38 | PROVIDERS: ATTEND Family Medicine | DX: I10 Essential (primary) hypertension (principal) ==

== ENCOUNTER 2018-10-01 19:09 | Emergency (ER) | payer OTHER ==
[2018-10-01] MEDS ORDERED: ALUM & MAG HYDROX-SIMETHICONE 30 ML UD ONE (20:04)
[2018-10-01] MEDS: ALUM & MAG HYDROX-SIMETHICONE 30 ML, LIDOCAINE VISCOUS 2% 15 ML PO ONE ×2 (20:06)
--- NOTE | 2018-10-01 20:39 | RAD ---
EXAM DESCRIPTION: Chest,1 View CLINICAL HISTORY: 43 years Male, chest pain Comparison: 05/11/2018 and 05/06/2018 FINDINGS: Single AP view of the chest Cardiomediastinal silhouette is within normal limits. No focal lung consolidation. No pleural effusion. No pneumothorax. No acute osseous finding. Linear densities projecting in the bilateral supraclavicular soft tissues, most likely outside body contours. IMPRESSION: No acute chest finding. Electronically signed by: Ashley Mcgrath MD 10/01/2018 8:36 PM CDT
--- NOTE | 2018-10-01 23:01 | ED.PDOC ---
History of Present Illness - General Chief Complaint: General Stated Complaint: rash to legs and then states chest discomfort Time Seen by Provider: 10/01/18 19:59 Source: patient Exam Limitations: other - possible intellectual delay - History of Present Illness Initial Comments: 43 yo male whose CC was rash & itching but also offered that he was having chest pain tonight. Described as burning but specifics re: previous episodes, aggravating factors, etc are unclear. Timing/Duration: 1 week, intermittent Severity/Quality: burning, dull, ingestion Location: substernal Chest Pain Radiation: no radiation Activities at Onset: none Prior Chest Pain/Cardiac Workup: other - has had previous episodes Improving Factors: nothing Worsening Factors: nothing Nitro Today/Relief: no nitro taken today Aspirin Treatment Today: no aspirin today Associated Symptoms: denies symptoms - except for rash & itching Allergies/Adverse Reactions: Allergies NO KNOWN ALLERGY Allergy (Verified 09/01/17 19:06) Home Medications: Ambulatory Orders Amlodipine Besylate 5 mg PO DAILY 06/11/18 Atorvastatin Calcium [Lipitor] 10 mg PO BEDTIME 06/11/18 Hydrocortisone Acetate W/ Pram [Proctofoam Hc 1-1 %] 1 aer GA BID 14 Days #1 aer 06/11/18 Losartan Potassium 100 mg PO DAILY 06/11/18 Methylcellulose (Laxative) [Citrucel Fiber Laxative] 1 pow PO BID #30 pow 06/11/18 Omeprazole [Prilosec Cap] 20 mg PO ACBK 06/11/18 Pantoprazole Tablet [Protonix] 40 mg PO ACBK 30 Days tab 06/11/18 Review of Systems - Review of Systems Constitutional: States: no symptoms reported EENTM: States: no symptoms reported Respiratory: States: no symptoms reported Cardiology: States: see HPI Gastrointestinal/Abdominal: States: no symptoms reported Genitourinary: States: no symptoms reported Musculoskeletal: States: no symptoms reported Skin: States: see HPI, rash Neurological: States: no symptoms reported Hematologic/Lymphatic: States: no symptoms reported Past Medical History (General) - Patient Medical History Hx Seizures: No Hx Stroke: No Hx Dementia: No Hx Asthma: No Hx of COPD: No Hx Cardiac Disorders: No Hx Congestive Heart Failure: No Hx Pacemaker: No Hx Hypertension: Yes Hx Thyroid Disease: No Hx Diabetes: No Hx Gastroesophageal Reflux: No Hx Renal Disease: No Hx Cancer: No Hx of HIV: No Hx Hepatitis C: No Hx MRSA: No Surgical History: no surgical history - Vaccination History Hx Tetanus, Diphtheria Vaccination: No Hx Influenza Vaccination: No Hx Pneumococcal Vaccination: No - Social History Hx Tobacco Use: No Hx Alcohol Use: Yes - daily use Hx Substance Use: No Hx Substance Use Treatment: No Hx Depression: No Hx Physical Abuse: No Hx Emotional Abuse: No Family Medical History - Family History Father Family History: Unknown Living Status: Hx Family Cancer: - possible prostate cancer Physical Exam - Physical Exam General Appearance: Alert, Comfortable, No apparent distress Eyes, Ears, Nose, Throat Exam: normal ENT inspection Neck: supple, normal inspection Respiratory: normal breath sounds, no respiratory distress Cardiovascular/Chest: regular rate, rhythm, no edema, no JVD, no murmur Gastrointestinal/Abdominal: non tender, soft, no organomegaly Extremity: non-tender, normal inspection, no calf tenderness, normal capillary refill Neurologic: alert, normal mood/affect, oriented x 3 Skin Exam: normal color, warm/dry Progress - Progress Progress: 10/01/18 22:59 Asymptomatic except he still feels itchy. 10/01/18 23:09 Discussed with the transfer center & was able to get more details about his admission there in April. Cardiology & GI saw him. An EGD was done. Presumed to have GERD. No stress test. I suspect this is GERD but I do not consider him to be a reliable historian. He has prominent inferior Q waves as compared to his 05/15 EKG. His HEART score = 1 (2 possible depending on family hx). - Results/Orders Results/Orders: Tr <0.02 Hgb 15 D-dimer 0.19 - EKG/XRAY/CT EKG: Sinus - rate = 71; nml axis; intervals; T waves; ST segments; prominent Q waves, Abnormal Q waves, Changed from - 05/15 XRAY: chest - no acute process - Consult/PCP Time Called: 23:01 Consult/PCP: Dr. Aburto Departure - Departure Clinical Impression: Itching Chest pain Qualifiers: Chest pain type: precordial pain Qualified Code(s): R07.2 - Precordial pain Time of Disposition: 23:03 Disposition: Transfer to Hospital Condition: Fair Home Medications: Ambulatory Orders Amlodipine Besylate 5 mg PO DAILY 06/11/18 Atorvastatin Calcium [Lipitor] 10 mg PO BEDTIME 06/11/18 Hydrocortisone Acetate W/ Pram [Proctofoam Hc 1-1 %] 1 aer GA BID 14 Days #1 aer 06/11/18 Losartan Potassium 100 mg PO DAILY 06/11/18 Methylcellulose (Laxative) [Citrucel Fiber Laxative] 1 pow PO BID #30 pow 06/11/18 Omeprazole [Prilosec Cap] 20 mg PO ACBK 06/11/18 Pantoprazole Tablet [Protonix] 40 mg PO ACBK 30 Days tab 06/11/18 Transfer to Outside Facility - Transfer Information Accepting Facility: [facility] Reason for Transfer: required specialist not available - cardiology
[2018-10-01] MEDS: ASPIRIN TABLET 325 MG TAB PO ONE (23:02)
[2018-10-02 01:04] VITALS: BP 150/91; TEMP 98.2; O2SAT 97
== END 2018-10-02 00:55 | disposition short-term general hospital (02) ==
LOC: ER 19:09
DX: R07.2 Precordial pain (principal); L29.9 Pruritus, unspecified; I10 Essential (primary) hypertension; Z79.899 Other long term (current) drug therapy

== ENCOUNTER 2019-01-23 21:27 | Emergency (ER) | payer OTHER ==
[2019-01-23 22:09] VITALS: TEMP 98.6
[2019-01-23] MEDS ORDERED: SODIUM CHLORIDE 0.9% 1000ML 1,000 ML IVS ONE (22:14)
--- NOTE | 2019-01-23 22:15 | ED.PDOC ---
History of Present Illness - General Chief Complaint: General Stated Complaint: feels dehydrated, gas, urine smells Time Seen by Provider: 01/23/19 22:13 - History of Present Illness Allergies/Adverse Reactions: Allergies NO KNOWN ALLERGY Allergy (Verified 01/23/19 22:09) Home Medications: Ambulatory Orders Amlodipine Besylate 5 mg PO DAILY 06/11/18 Atorvastatin Calcium [Lipitor] 10 mg PO BEDTIME 06/11/18 Hydrocortisone Acetate W/ Pram [Proctofoam Hc 1-1 %] 1 aer HI BID 14 Days #1 aer 06/11/18 Losartan Potassium 100 mg PO DAILY 06/11/18 Methylcellulose (Laxative) [Citrucel Fiber Laxative] 1 pow PO BID #30 pow 06/11/18 Omeprazole [Prilosec Cap] 20 mg PO ACBK 06/11/18 Pantoprazole Tablet [Protonix] 40 mg PO ACBK 30 Days tab 06/11/18 Past Medical History (General) - Patient Medical History Hx Seizures: No Hx Stroke: No Hx Dementia: No Hx Asthma: No Hx of COPD: No Hx Cardiac Disorders: No Hx Congestive Heart Failure: No Hx Pacemaker: No Hx Hypertension: Yes Hx Thyroid Disease: No Hx Diabetes: No Hx Gastroesophageal Reflux: No Hx Renal Disease: No Hx Cancer: No Hx of HIV: No Hx Hepatitis C: No Hx MRSA: No Surgical History: no surgical history - Vaccination History Hx Tetanus, Diphtheria Vaccination: No Hx Influenza Vaccination: No Hx Pneumococcal Vaccination: No - Social History Hx Tobacco Use: No Hx Alcohol Use: Yes - daily use Hx Substance Use: No Hx Substance Use Treatment: No Hx Depression: No Hx Physical Abuse: No Hx Emotional Abuse: No Family Medical History - Family History Father Family History: Unknown Living Status: Hx Family Cancer: - possible prostate cancer Departure - Departure Clinical Impression: Left against medical advice, Patient left without being seen Time of Disposition: 03:53 Disposition: Left Without Being Seen Condition: Fair Departure Forms: ED Discharge - Pt. Copy, Patient Portal Self Enrollment Referrals: Froylan Styles MD [Primary Care Provider] - 1-2 Weeks Home Medications: Ambulatory Orders Amlodipine Besylate 5 mg PO DAILY 06/11/18 Atorvastatin Calcium [Lipitor] 10 mg PO BEDTIME 06/11/18 Hydrocortisone Acetate W/ Pram [Proctofoam Hc 1-1 %] 1 aer HI BID 14 Days #1 aer 06/11/18 Losartan Potassium 100 mg PO DAILY 06/11/18 Methylcellulose (Laxative) [Citrucel Fiber Laxative] 1 pow PO BID #30 pow 06/11/18 Omeprazole [Prilosec Cap] 20 mg PO ACBK 06/11/18 Pantoprazole Tablet [Protonix] 40 mg PO ACBK 30 Days tab 06/11/18
[2019-01-23 23:20] VITALS: BP 164/91; O2SAT 97
== END 2019-01-23 23:24 | disposition left against medical advice (07) ==
LOC: ER 21:27
DX: E86.0 Dehydration (principal); Z53.21 Procedure and treatment not carried out due to patient leaving prior to being seen by health care provider

== ENCOUNTER 2019-01-28 07:42 | Emergency (ER) | payer OTHER ==
--- NOTE | 2019-01-28 08:08 | ED.PDOC ---
History of Present Illness - General Chief Complaint: General Stated Complaint: I'm going to today Time Seen by Provider: 01/28/19 08:00 Source: patient Exam Limitations: no limitations - History of Present Illness Initial Comments: Patient presents saying that he "doesn't feel right". He is anxious and he thinks he might need fluids. He has a headache located at the apex of his head, non-radiating, constant, aching, no exacerbating nor alleviating factors, no associated symptoms. No fever/photophobia/N/V. Patient says he feels "bloated" but can't explain why. No other complaints. Timing/Duration: unsure Severity: mild Improving Factors: nothing Worsening Factors: nothing Associated Symptoms: denies symptoms Allergies/Adverse Reactions: Allergies NO KNOWN ALLERGY Allergy (Verified 01/23/19 22:09) Home Medications: Ambulatory Orders Amlodipine Besylate 5 mg PO DAILY 06/11/18 Atorvastatin Calcium [Lipitor] 10 mg PO BEDTIME 06/11/18 Hydrocortisone Acetate W/ Pram [Proctofoam Hc 1-1 %] 1 aer IA BID 14 Days #1 aer 06/11/18 Losartan Potassium 100 mg PO DAILY 06/11/18 Methylcellulose (Laxative) [Citrucel Fiber Laxative] 1 pow PO BID #30 pow 06/11/18 Omeprazole [Prilosec Cap] 20 mg PO ACBK 06/11/18 Pantoprazole Tablet [Protonix] 40 mg PO ACBK 30 Days tab 06/11/18 Review of Systems - Review of Systems Constitutional: States: see HPI EENTM: States: no symptoms reported Respiratory: States: no symptoms reported Cardiology: States: no symptoms reported Gastrointestinal/Abdominal: States: no symptoms reported Genitourinary: States: no symptoms reported Musculoskeletal: States: no symptoms reported Skin: States: no symptoms reported Neurological: States: no symptoms reported Endocrine: States: no symptoms reported Hematologic/Lymphatic: States: no symptoms reported Past Medical History (General) - Patient Medical History Hx Seizures: No Hx Stroke: No Hx Dementia: No Hx Asthma: No Hx of COPD: No Hx Cardiac Disorders: No Hx Congestive Heart Failure: No Hx Pacemaker: No Hx Hypertension: Yes Hx Thyroid Disease: No Hx Diabetes: No Hx Gastroesophageal Reflux: No Hx Renal Disease: No Hx Cancer: No Hx of HIV: No Hx Hepatitis C: No Hx MRSA: No - Vaccination History Hx Tetanus, Diphtheria Vaccination: No Hx Influenza Vaccination: No Hx Pneumococcal Vaccination: No - Social History Hx Tobacco Use: No Hx Alcohol Use: Yes - daily use Hx Substance Use: No Hx Substance Use Treatment: No Hx Depression: No Hx Physical Abuse: No Hx Emotional Abuse: No Family Medical History - Family History Father Family History: Unknown Living Status: Hx Family Cancer: - possible prostate cancer Physical Exam - Physical Exam General Appearance: Alert Eye Exam: bilateral normal Ears, Nose, Throat: normal ENT inspection Neck: non-tender, full range of motion, supple Respiratory: lungs clear, normal breath sounds Cardiovascular/Chest: normal peripheral pulses, regular rate, rhythm, no edema Gastrointestinal/Abdominal: normal bowel sounds, non tender, soft Back Exam: normal inspection, no CVA tenderness Extremity: normal range of motion, non-tender, normal inspection 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 II-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 nml as tested, no motor/sensory deficits, alert, normal mood/affect, oriented x 3 Skin Exam: normal color Lymphatic: no adenopathy Progress - Progress Progress: 01/28/19 11:31 Laboratory Tests 01/28/19 01/28/19 01/28/19 08:10 08:10 08:16 WBC 8.0 RBC 4.22 L Hgb 13.2 L Hct 39.0 L MCV 92.6 MCH 31.4 H MCHC 33.9 RDW 14.7 H Plt Count 202 MPV 8.1 Absolute Neuts (auto) 5.00 Absolute Lymphs (auto) 2.10 Absolute Monos (auto) 0.60 Absolute Eos (auto) 0.10 Absolute Basos (auto) 0.10 Neutrophils % 62.8 Lymphocytes % 26.6 Monocytes % 7.5 Eosinophils % 1.9 Basophils % 1.2 Sodium Potassium Chloride Carbon Dioxide Anion Gap BUN Creatinine BUN/Creatinine Ratio Random Glucose Serum Osmolality Calcium Total Bilirubin AST ALT Alkaline Phosphatase Serum Total Protein Albumin Globulin Albumin/Globulin Ratio Urine Color Yellow Urine Appearance Clear Urine pH 7.0 Ur Specific [place] 1.010 Urine Protein Negative Urine Glucose (UA) Negative Urine Ketones Negative Urine Blood Negative Urine Nitrite Negative Urine Bilirubin Negative Urine Urobilinogen 0.2 Ur Leukocyte Esterase Negative Urine RBC 0 Urine WBC 0 Ur Epithelial Cells 0 Urine Bacteria 0 Urine Opiates Screen Negative Urine Barbiturates Negative Ur Phencyclidine Scrn Negative U Amphetamin/Meth Scrn Negative U Benzodiazepines Scrn Negative U Cocaine Metab Screen Negative U Cannabinoids Screen Negative 01/28/19 08:16 WBC RBC Hgb Hct MCV MCH MCHC RDW Plt Count MPV Absolute Neuts (auto) Absolute Lymphs (auto) Absolute Monos (auto) Absolute Eos (auto) Absolute Basos (auto) Neutrophils % Lymphocytes % Monocytes % Eosinophils % Basophils % Sodium 137 Potassium 4.0 Chloride 101 Carbon Dioxide 26 Anion Gap 14.0 BUN 19 H Creatinine 1.09 BUN/Creatinine Ratio 17.4 Random Glucose 133 H Serum Osmolality 278.0 Calcium 8.9 Total Bilirubin 0.8 AST 80 H ALT 117 H Alkaline Phosphatase 57 Serum Total Protein 7.0 Albumin 4.1 Globulin 2.9 Albumin/Globulin Ratio 1.4 Urine Color Urine Appearance Urine pH Ur Specific [place] Urine Protein Urine Glucose (UA) Urine Ketones Urine Blood Urine Nitrite Urine Bilirubin Urine Urobilinogen Ur Leukocyte Esterase Urine RBC Urine WBC Ur Epithelial Cells Urine Bacteria Urine Opiates Screen Urine Barbiturates Ur Phencyclidine Scrn U Amphetamin/Meth Scrn U Benzodiazepines Scrn U Cocaine Metab Screen U Cannabinoids Screen BUN 19. Patient received one liter NS and felt better. He was given Tylenol 650 mg po x one but this did not relieve his pain. He could not recall previous headaches. His CT head was negative. He was given Toradol 30 mg IV x one. Headache improved. Discharged with follow up instructions. Care instructions given. E.R. warnings given. Questions were elicited and answered. Patient voiced understanding and agreement with the plan. Departure - Departure Clinical Impression: General symptom, Headache, Dehydration Disposition: Discharge to Home or Self Care Condition: Good Departure Forms: ED Discharge - Pt. Copy, Patient Portal Self Enrollment Diet: resume usual diet Activity: increase activity as tolerated Referrals: Froylan Styles MD [Primary Care Provider] - 1-2 Weeks Home Medications: Ambulatory Orders Amlodipine Besylate 5 mg PO DAILY 06/11/18 Atorvastatin Calcium [Lipitor] 10 mg PO BEDTIME 06/11/18 Hydrocortisone Acetate W/ Pram [Proctofoam Hc 1-1 %] 1 aer IA BID 14 Days #1 aer 06/11/18 Losartan Potassium 100 mg PO DAILY 06/11/18 Methylcellulose (Laxative) [Citrucel Fiber Laxative] 1 pow PO BID #30 pow 06/11/18 Omeprazole [Prilosec Cap] 20 mg PO ACBK 06/11/18 Pantoprazole Tablet [Protonix] 40 mg PO ACBK 30 Days tab 06/11/18 Additional Instructions: See your regular doctor next week. Return to the E.R. for worsening or new symptoms. Critical Care Note - Critical Care Note Total Time (mins): 35
[2019-01-28] MEDS ORDERED: SODIUM CHLORIDE 0.9% 1000ML 1,000 ML IVS ONE (08:56)
[2019-01-28] MEDS ORDERED: ACETAMINOPHEN 325 MG TAB PO ONE (08:57)
[2019-01-28 11:14] VITALS: TEMP 98.1; O2SAT 94
--- NOTE | 2019-01-28 11:15 | CT ---
EXAM DESCRIPTION: CT Head, Without contrast CLINICAL HISTORY: 43 years Male headache COMPARISON: None TECHNIQUE: Noncontrast axial scans of the brain were obtained. Sagittal and coronal reformatted images were performed. This exam was performed according to our departmental dose-optimization program, which includes automated exposure control, adjustment of the mA and/or kV according to patient size and/or use of iterative reconstruction technique. FINDINGS: There are a few scanning artifacts and slight positional asymmetry. There is no evidence of acute intracranial hemorrhage, extracerebral fluid collection, hydrocephalus, midline shift, obvious mass effect, or major territorial infarction. Cortical sulci appear unremarkable. The cisterna magna is mildly prominent. There appears to be minimal vascular calcification at the base of the brain. Tanner-white distinction is preserved. The bony calvarium appears intact. Visualized paranasal sinuses and mastoid air cells appear clear except for a probable small retention cyst or polyp in the right sphenoid sinus and slight mucosal thickening or a small retention cyst or polyp in the floor of the right maxillary antrum. IMPRESSION: Essentially unremarkable noncontrast CT of the brain, with no evidence of acute intracranial hemorrhage. Electronically signed by: Reg Benitez MD 01/28/2019 11:14 AM CDT
[2019-01-28] MEDS ORDERED: KETOROLAC TROMETHAMINE INJ 30 MG/ML VIAL IV ONE (11:24)
[2019-01-28 12:42] VITALS: BP 133/86
== END 2019-01-28 12:26 | disposition home or self-care (01) ==
LOC: ER 07:42
DX: R51 Headache (principal); E86.0 Dehydration; R68.89 Other general symptoms and signs; I10 Essential (primary) hypertension; Z79.899 Other long term (current) drug therapy
CPT/HCPCS: 36415; 70450; 80053; 80307; 81001; 85025; 93005; J1885; J7030

== ENCOUNTER 2019-04-25 10:41 | Emergency (ER) | payer OTHER ==
[2019-04-25 10:56] VITALS: TEMP 97.8
[2019-04-25] MEDS ORDERED: ACETAMINOPHEN 500 MG TAB PO ONE (10:57)
[2019-04-25] MEDS ORDERED: ONDANSETRON INJ 4 MG/2 ML VIAL IV ONE (10:57)
[2019-04-25] MEDS ORDERED: DEXAMETHASONE INJ 10 MG/ML VIAL IV ONE (10:58)
--- NOTE | 2019-04-25 11:03 | ED.PDOC ---
History of Present Illness - General Chief Complaint: Headache Stated Complaint: feels dehydrated,weak,[place] Time Seen by Provider: 04/25/19 10:56 - History of Present Illness Initial Comments: 44 yo M PMH HTN appears to be MR but denies, poor historian, presents with non specific complaint of dehydration and headache x 3 days. Patient has PMD for follow up denies fever chills vomiting diarrhea chest pain sob diaphoresis. Admits intermittent nausea and 'a little' in the ED. No change in diet rest bowel or bladder denies smoking admits occasional drinking admits FH DM denies FH HTN no other c/o today. Allergies/Adverse Reactions: Allergies NO KNOWN ALLERGY Allergy (Verified 01/23/19 22:09) Home Medications: Ambulatory Orders Amlodipine Besylate 5 mg PO DAILY 06/11/18 Atorvastatin Calcium [Lipitor] 10 mg PO BEDTIME 06/11/18 Hydrocortisone Acetate W/ Pram [Proctofoam Hc 1-1 %] 1 aer AL BID 14 Days #1 aer 06/11/18 Losartan Potassium 100 mg PO DAILY 06/11/18 Methylcellulose (Laxative) [Citrucel Fiber Laxative] 1 pow PO BID #30 pow 06/11/18 Omeprazole [Prilosec Cap] 20 mg PO ACBK 06/11/18 Pantoprazole Tablet [Protonix] 40 mg PO ACBK 30 Days tab 06/11/18 Acetaminophen [Tylenol] 650 mg PO Q6H PRN #30 tab 04/25/19 Ibuprofen 600 mg PO Q6H PRN #20 tab 04/25/19 Review of Systems - Review of Systems Constitutional: States: see HPI EENTM: States: see HPI Respiratory: States: see HPI Cardiology: States: see HPI Gastrointestinal/Abdominal: States: see HPI Genitourinary: States: see HPI Musculoskeletal: States: see HPI Skin: States: see HPI Neurological: States: see HPI Endocrine: States: see HPI Hematologic/Lymphatic: States: see HPI All other Systems: Reviewed and Negative Past Medical History (General) - Patient Medical History Hx Seizures: No Hx Stroke: No Hx Dementia: No Hx Asthma: No Hx of COPD: No Hx Cardiac Disorders: No Hx Congestive Heart Failure: No Hx Pacemaker: No Hx Hypertension: Yes Hx Thyroid Disease: No Hx Diabetes: No Hx Gastroesophageal Reflux: No Hx Renal Disease: No Hx Cancer: No Hx of HIV: No Hx Hepatitis C: No Hx MRSA: No Surgical History: noncontributory - Vaccination History Hx Tetanus, Diphtheria Vaccination: No Hx Influenza Vaccination: No Hx Pneumococcal Vaccination: No - Social History Hx Tobacco Use: No Hx Alcohol Use: Yes - daily use Hx Substance Use: No Hx Substance Use Treatment: No Hx Depression: No Hx Physical Abuse: No Hx Emotional Abuse: No Family Medical History - Family History Father Family History: Unknown Living Status: Hx Family Cancer: - possible prostate cancer Physical Exam - Physical Exam General Appearance: No apparent distress Eye Exam: bilateral normal - wears glassess Ears, Nose, Throat: normal ENT inspection Neck: non-tender, full range of motion Respiratory: normal breath sounds Cardiovascular/Chest: regular rate, rhythm Gastrointestinal/Abdominal: non tender, soft Back Exam: normal inspection Neurologic: no motor/sensory deficits Skin Exam: normal color Progress - Progress Progress: 04/25/19 11:04 A/P-Generalized Headache, Dehydration-iv bolus tylenol decadron zofran cbc cmp lipase ckmb urinalysis cxr ct head flu strep if unremarkable and improved d/c follow up pcp tylenol ibuprofen 04/25/19 11:55 04/25/19 12:52 pt reports feeling better after ED treatment and IV fluids Laboratory Tests 04/25/19 04/25/19 04/25/19 11:00 11:00 11:00 WBC 8.0 RBC 4.66 L Hgb 14.5 Hct 43.0 MCV 92.3 MCH 31.1 H MCHC 33.7 RDW 14.9 H Plt Count 230 MPV 8.3 Absolute Neuts (auto) 5.80 Absolute Lymphs (auto) 1.60 Absolute Monos (auto) 0.50 Absolute Eos (auto) 0.10 Absolute Basos (auto) 0.00 Neutrophils % 72.0 Lymphocytes % 20.0 Monocytes % 6.6 Eosinophils % 1.0 Basophils % 0.4 Sodium 137 Potassium 4.1 Chloride 97 L Carbon Dioxide 26 Anion Gap 18.1 H BUN 25 H Creatinine 1.00 BUN/Creatinine Ratio 25.0 H Random Glucose 158 H Serum Osmolality 281.5 Calcium 9.5 Total Bilirubin 0.4 AST 54 H ALT 92 H Alkaline Phosphatase 60 CK-MB (CK-2) 4.1 Serum Total Protein 7.3 Albumin 4.2 Globulin 3.1 Albumin/Globulin Ratio 1.4 Lipase 46 Urine Color Urine Appearance Urine pH Ur Specific [place] Urine Protein Urine Glucose (UA) Urine Ketones Urine Blood Urine Nitrite Urine Bilirubin Urine Urobilinogen Ur Leukocyte Esterase Urine RBC Urine WBC Ur Epithelial Cells Urine Bacteria Group A Strep Rapid 04/25/19 04/25/19 11:00 11:30 WBC RBC Hgb Hct MCV MCH MCHC RDW Plt Count MPV Absolute Neuts (auto) Absolute Lymphs (auto) Absolute Monos (auto) Absolute Eos (auto) Absolute Basos (auto) Neutrophils % Lymphocytes % Monocytes % Eosinophils % Basophils % Sodium Potassium Chloride Carbon Dioxide Anion Gap BUN Creatinine BUN/Creatinine Ratio Random Glucose Serum Osmolality Calcium Total Bilirubin AST ALT Alkaline Phosphatase CK-MB (CK-2) Serum Total Protein Albumin Globulin Albumin/Globulin Ratio Lipase Urine Color Yellow Urine Appearance Clear Urine pH 5.5 Ur Specific [place] 1.025 Urine Protein 30 Urine Glucose (UA) Negative Urine Ketones Negative Urine Blood Negative Urine Nitrite Negative Urine Bilirubin Negative Urine Urobilinogen 0.2 Ur Leukocyte Esterase Negative Urine RBC 0 Urine WBC 0-1 Ur Epithelial Cells 0 Urine Bacteria 0 Group A Strep Rapid Negative EXAM DESCRIPTION: Chest,2 Views CLINICAL HISTORY: 44 years Male, malaise. Pain. COMPARISON: 10/01/2018 IMPRESSION: Heart size and pulmonary vascularity are within normal limits. There is no airspace consolidation, pleural effusion, or pneumothorax. No acute osseous abnormality. Electronically signed by: Maged Nunes MD 04/25/2019 11:36 AM CDT EXAM DESCRIPTION: Head CLINICAL HISTORY: headache COMPARISON: CT head 01/28/2019 TECHNIQUE: Contiguous axial images through the head were obtained without intravenous contrast administration. Sagittal and coronal reconstructions were reviewed. FINDINGS: No evidence of acute major vascular territorial infarct or intraparenchymal hemorrhage. No intra-axial or extra-axial fluid collections are identified. The ventricles and cisterns appear normal in caliber. The sella and suprasellar regions appear normal. The structures of the posterior fossa are intact. The globes are intact bilaterally. The visualized paranasal sinuses and mastoid air cells are well-aerated. Review of the bones demonstrates no gross instability. IMPRESSION: No CT evidence of acute intracranial process. This exam was performed according to our departmental dose-optimization program, which includes automated exposure control, adjustment of the mA and/or kV according to patient size and/or use of iterative reconstruction technique. Electronically signed by: Tara Morillo MD 04/25/2019 11:40 AM CDT - Results/Orders Results/Orders: Laboratory Tests 04/25/19 04/25/19 04/25/19 11:00 11:00 11:00 WBC 8.0 RBC 4.66 L Hgb 14.5 Hct 43.0 MCV 92.3 MCH 31.1 H MCHC 33.7 RDW 14.9 H Plt Count 230 MPV 8.3 Absolute Neuts (auto) 5.80 Absolute Lymphs (auto) 1.60 Absolute Monos (auto) 0.50 Absolute Eos (auto) 0.10 Absolute Basos (auto) 0.00 Neutrophils % 72.0 Lymphocytes % 20.0 Monocytes % 6.6 Eosinophils % 1.0 Basophils % 0.4 Sodium 137 Potassium 4.1 Chloride 97 L Carbon Dioxide 26 Anion Gap 18.1 H BUN 25 H Creatinine 1.00 BUN/Creatinine Ratio 25.0 H Random Glucose 158 H Serum Osmolality 281.5 Calcium 9.5 Total Bilirubin 0.4 AST 54 H ALT 92 H Alkaline Phosphatase 60 CK-MB (CK-2) 4.1 Serum Total Protein 7.3 Albumin 4.2 Globulin 3.1 Albumin/Globulin Ratio 1.4 Lipase 46 Urine Color Urine Appearance Urine pH Ur Specific [place] Urine Protein Urine Glucose (UA) Urine Ketones Urine Blood Urine Nitrite Urine Bilirubin Urine Urobilinogen Ur Leukocyte Esterase Urine RBC Urine WBC Ur Epithelial Cells Urine Bacteria Group A Strep Rapid 04/25/19 04/25/19 11:00 11:30 WBC RBC Hgb Hct MCV MCH MCHC RDW Plt Count MPV Absolute Neuts (auto) Absolute Lymphs (auto) Absolute Monos (auto) Absolute Eos (auto) Absolute Basos (auto) Neutrophils % Lymphocytes % Monocytes % Eosinophils % Basophils % Sodium Potassium Chloride Carbon Dioxide Anion Gap BUN Creatinine BUN/Creatinine Ratio Random Glucose Serum Osmolality Calcium Total Bilirubin AST ALT Alkaline Phosphatase CK-MB (CK-2) Serum Total Protein Albumin Globulin Albumin/Globulin Ratio Lipase Urine Color Yellow Urine Appearance Clear Urine pH 5.5 Ur Specific [place] 1.025 Urine Protein 30 Urine Glucose (UA) Negative Urine Ketones Negative Urine Blood Negative Urine Nitrite Negative Urine Bilirubin Negative Urine Urobilinogen 0.2 Ur Leukocyte Esterase Negative Urine RBC 0 Urine WBC 0-1 Ur Epithelial Cells 0 Urine Bacteria 0 Group A Strep Rapid Negative EXAM DESCRIPTION: Head CLINICAL HISTORY: headache COMPARISON: CT head 01/28/2019 TECHNIQUE: Contiguous axial images through the head were obtained without intravenous contrast administration. Sagittal and coronal reconstructions were reviewed. FINDINGS: No evidence of acute major vascular territorial infarct or intraparenchymal hemorrhage. No intra-axial or extra-axial fluid collections are identified. The ventricles and cisterns appear normal in caliber. The sella and suprasellar regions appear normal. The structures of the posterior fossa are intact. The globes are intact bilaterally. The visualized paranasal sinuses and mastoid air cells are well-aerated. Review of the bones demonstrates no gross instability. IMPRESSION: No CT evidence of acute intracranial process. This exam was performed according to our departmental dose-optimization program, which includes automated exposure control, adjustment of the mA and/or kV according to patient size and/or use of iterative reconstruction technique. Electronically signed by: Tara Morillo MD 04/25/2019 11:40 AM CDT EXAM DESCRIPTION: Chest,2 Views CLINICAL HISTORY: 44 years Male, malaise. Pain. COMPARISON: 10/01/2018 IMPRESSION: Heart size and pulmonary vascularity are within normal limits. There is no airspace consolidation, pleural effusion, or pneumothorax. No acute osseous abnormality. Electronically signed by: Maged Nunes MD 04/25/2019 11:36 AM CDT Departure - Departure Clinical Impression: Generalized headache, Dehydration Time of Disposition: 12:55 Disposition: Discharge to Home or Self Care Condition: Good Departure Forms: ED Discharge - Pt. Copy, Patient Portal Self Enrollment Instructions: DI for Headache Referrals: Froylan Styles MD [Primary Care Provider] - 1-2 Weeks Prescriptions: Acetaminophen [Tylenol] 650 mg PO Q6H PRN #30 tab PRN Reason: Pain Ibuprofen 600 mg PO Q6H PRN #20 tab PRN Reason: Pain Home Medications: Ambulatory Orders Amlodipine Besylate 5 mg PO DAILY 06/11/18 Atorvastatin Calcium [Lipitor] 10 mg PO BEDTIME 06/11/18 Hydrocortisone Acetate W/ Pram [Proctofoam Hc 1-1 %] 1 aer AL BID 14 Days #1 aer 06/11/18 Losartan Potassium 100 mg PO DAILY 06/11/18 Methylcellulose (Laxative) [Citrucel Fiber Laxative] 1 pow PO BID #30 pow 06/11/18 Omeprazole [Prilosec Cap] 20 mg PO ACBK 06/11/18 Pantoprazole Tablet [Protonix] 40 mg PO ACBK 30 Days tab 06/11/18 Acetaminophen [Tylenol] 650 mg PO Q6H PRN #30 tab 04/25/19 Ibuprofen 600 mg PO Q6H PRN #20 tab 04/25/19
--- NOTE | 2019-04-25 11:38 | RAD ---
EXAM DESCRIPTION: Chest,2 Views CLINICAL HISTORY: 44 years Male, malaise. Pain. COMPARISON: 10/01/2018 IMPRESSION: Heart size and pulmonary vascularity are within normal limits. There is no airspace consolidation, pleural effusion, or pneumothorax. No acute osseous abnormality. Electronically signed by: Maged Nunes MD 04/25/2019 11:36 AM CDT
--- NOTE | 2019-04-25 11:41 | CT ---
EXAM DESCRIPTION: Head CLINICAL HISTORY: headache COMPARISON: CT head 01/28/2019 TECHNIQUE: Contiguous axial images through the head were obtained without intravenous contrast administration. Sagittal and coronal reconstructions were reviewed. FINDINGS: No evidence of acute major vascular territorial infarct or intraparenchymal hemorrhage. No intra-axial or extra-axial fluid collections are identified. The ventricles and cisterns appear normal in caliber. The sella and suprasellar regions appear normal. The structures of the posterior fossa are intact. The globes are intact bilaterally. The visualized paranasal sinuses and mastoid air cells are well-aerated. Review of the bones demonstrates no gross instability. IMPRESSION: No CT evidence of acute intracranial process. This exam was performed according to our departmental dose-optimization program, which includes automated exposure control, adjustment of the mA and/or kV according to patient size and/or use of iterative reconstruction technique. Electronically signed by: Tara Morillo MD 04/25/2019 11:40 AM CDT
[2019-04-25] MEDS ORDERED: SODIUM CHLORIDE 0.9% 1000ML 1,000 ML IVS ONE ×2 (12:02→13:08)
[2019-04-25 14:20] VITALS: BP 155/92; O2SAT 96
== END 2019-04-25 14:15 | disposition home or self-care (01) ==
LOC: ER 10:41
DX: R51 Headache (principal); E86.0 Dehydration; I10 Essential (primary) hypertension; Z79.899 Other long term (current) drug therapy
CPT/HCPCS: 36415; 70450; 71046; 80053; 81001; 82553; 83690; 85025; 87070; 87502; 87880; J1100; J2405; J7030

== ENCOUNTER → 2019-05-02 | Outpatient (CLI) | payer OTHER | LOC: YCFC.O 17:34 | PROVIDERS: ATTEND Family Medicine | DX: M13.0 Polyarthritis, unspecified (principal) ==

== ENCOUNTER → 2019-11-22 | Outpatient (CLI) | payer OTHER | LOC: YCFC.O 14:10 | PROVIDERS: ATTEND Family Medicine | DX: I10 Essential (primary) hypertension (principal); E78.5 Hyperlipidemia, unspecified; R42 Dizziness and giddiness; Z12.5 Encounter for screening for malignant neoplasm of prostate ==

== ENCOUNTER → 2020-05-22 | Outpatient (CLI) | payer OTHER | LOC: YCFC.O 16:21 | PROVIDERS: ATTEND Family Medicine | DX: E78.5 Hyperlipidemia, unspecified (principal); I10 Essential (primary) hypertension; R14.0 Abdominal distension (gaseous) ==

== ENCOUNTER 2020-06-03 12:57 | Emergency (ER) | payer MEDICAID, OTHER ==
[2020-06-03 13:28] VITALS: O2SAT 96
--- NOTE | 2020-06-03 14:01 | ED.PDOC ---
History of Present Illness - General Chief Complaint: Abdominal Pain Stated Complaint: sore throat, abdominal pain Time Seen by Provider: 06/03/20 13:58 - History of Present Illness Comments: SORE THROAT, MYALGIAS TODAY Cough Quality/Degree: no cough Possible Cause: no prior episodes Improving Factors: nothing Worsening Factors: nothing Associated Symptoms: denies symptoms Respiratory Risk Factors: no cause identified Allergies/Adverse Reactions: Allergies NO KNOWN ALLERGY Allergy (Verified 06/03/20 13:29) Home Medications: Ambulatory Orders Amlodipine Besylate 5 mg PO DAILY 06/11/18 Atorvastatin Calcium [Lipitor] 10 mg PO BEDTIME 06/11/18 Hydrocortisone Acetate W/ Pram [Proctofoam Hc 1-1 %] 1 aer [place] BID 14 Days #1 aer 06/11/18 Losartan Potassium 100 mg PO DAILY 06/11/18 Methylcellulose (Laxative) [Citrucel Fiber Laxative] 1 pow PO BID #30 pow 06/11/18 Omeprazole [Prilosec Cap] 20 mg PO ACBK 06/11/18 Pantoprazole Tablet [Protonix] 40 mg PO ACBK 30 Days tab 06/11/18 Acetaminophen [Tylenol] 650 mg PO Q6H PRN #30 tab 04/25/19 Ibuprofen 600 mg PO Q6H PRN #20 tab 04/25/19 Amoxicillin 875 mg PO BID #20 tab 06/03/20 Review of Systems - Review of Systems Constitutional: Denies: chills, fever EENTM: States: no symptoms reported Respiratory: States: no symptoms reported Cardiology: States: no symptoms reported Gastrointestinal/Abdominal: States: no symptoms reported Genitourinary: States: no symptoms reported Musculoskeletal: States: no symptoms reported Skin: States: no symptoms reported Endocrine: States: no symptoms reported Past Medical History (General) - Patient Medical History Hx Seizures: No Hx Stroke: No Hx Dementia: No Hx Asthma: No Hx of COPD: No Hx Cardiac Disorders: No Hx Congestive Heart Failure: No Hx Pacemaker: No Hx Hypertension: Yes Hx Thyroid Disease: No Hx Diabetes: No Hx Gastroesophageal Reflux: No Hx Renal Disease: No Hx Cancer: No Hx of HIV: No Hx Hepatitis C: No Hx MRSA: No Surgical History: no surgical history - Vaccination History Hx Tetanus, Diphtheria Vaccination: No Hx Influenza Vaccination: No Hx Pneumococcal Vaccination: No - Social History Hx Tobacco Use: No Hx Alcohol Use: Yes - daily use Hx Substance Use: No Hx Substance Use Treatment: No Hx Depression: No Hx Physical Abuse: No Hx Emotional Abuse: No - Activities of Daily Living Hospice Agency (if applicable):: None - Female History Patient is a Female of Child Bearing Age (10 -59 yrs old): No Family Medical History - Family History Father Family History: Unknown Living Status: Hx Family Cancer: - possible prostate cancer Physical Exam - Physical Exam General Appearance: Alert, Restless, Well Developed, Well Groomed, Well Hydrated, Well Nourished ENT Exam: normal ENT inspection, TMs normal, nasal drainage, TM bulging, TM dull Neck: non-tender, full range of motion Respiratory: chest non-tender, lungs clear, normal breath sounds, no respiratory distress Cardiovascular/Chest: normal peripheral pulses, regular rate, rhythm, no edema, no gallop, no JVD, no murmur Gastrointestinal/Abdominal: normal bowel sounds, non tender, soft, no organomegaly Extremity: normal range of motion, non-tender, normal inspection Neurologic: linux architect II-XII nml as tested, no motor/sensory deficits, alert, normal mood/affect, oriented x 3 Departure - Departure Clinical Impression: Strep throat Time of Disposition: 13:59 Disposition: Discharge to Home or Self Care Condition: Good Departure Forms: ED Discharge - Pt. Copy, Patient Portal Self Enrollment Instructions: DI for Abdominal Pain-Adult, Strep Throat (DC) Referrals: Froylan Styles MD [Primary Care Provider] - 1-2 Weeks Prescriptions: Amoxicillin 875 mg PO BID #20 tab Home Medications: Ambulatory Orders Amlodipine Besylate 5 mg PO DAILY 06/11/18 Atorvastatin Calcium [Lipitor] 10 mg PO BEDTIME 06/11/18 Hydrocortisone Acetate W/ Pram [Proctofoam Hc 1-1 %] 1 aer IA BID 14 Days #1 aer 06/11/18 Losartan Potassium 100 mg PO DAILY 06/11/18 Methylcellulose (Laxative) [Citrucel Fiber Laxative] 1 pow PO BID #30 pow 06/11/18 Omeprazole [Prilosec Cap] 20 mg PO ACBK 06/11/18 Pantoprazole Tablet [Protonix] 40 mg PO ACBK 30 Days tab 06/11/18 Acetaminophen [Tylenol] 650 mg PO Q6H PRN #30 tab 10/29/19 Ibuprofen 600 mg PO Q6H PRN #20 tab 04/25/19 Amoxicillin 875 mg PO BID #20 tab 06/03/20 Additional Instructions: OTC IBUPROFEN NEEDED FOR PAIN.
[2020-06-03 14:18] VITALS: BP 140/87; TEMP 97.8
== END 2020-06-03 14:08 | disposition home or self-care (01) ==
LOC: ER 12:57
DX: J02.0 Streptococcal pharyngitis (principal); M79.10 Myalgia, unspecified site; I10 Essential (primary) hypertension; Z79.899 Other long term (current) drug therapy

== ENCOUNTER → 2020-06-06 | Outpatient (CLI) | payer OTHER ==
--- NOTE | 2020-06-07 08:37 | CT ---
EXAM: Abdomen/Pelvis w/wo Contrast CLINICAL HISTORY: ABDOMINAL PAIN UNSPECIFIED COMPARISON STUDY: None TECHNICAL: Precontrast, post IV contrast and delayed excretion phase images were performed through the abdomen and pelvis. Oral contrast was not given. Sagittal and coronal reconstructions were obtained. FINDINGS: The visible portion of the chest is negative. The heart is not enlarged. The liver, spleen, pancreas, adrenal glands, and left kidney enhance appropriately and demonstrate no acute abnormality. And 18 mm exophytic hypodensity in the posterior superior aspect of the left kidney has the appearance of a cyst. There is mild left-sided hydronephrosis with rapid transition to normal caliber ureter. The delayed images show persistence of contrast within the renal pelvis. The gallbladder is intact and there is no evidence of biliary dilatation. There is no bowel obstruction or free air. There is no acute inflammatory process. The appendix is visible and normal. The appendix is retrocecal extending into the right upper quadrant. The aorta, IVC and retroperitoneum are negative. The prostate has internal calcification but is not grossly enlarged. There are severe degenerative disc changes at L5-S1 with bilateral foraminal stenosis Fat extends into both inguinal canals but no herniated bowel. IMPRESSION: 1. No acute intra-abdominal/pelvic abnormality. 2. 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 3. 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 4. Bilateral fat-containing inguinal hernias. 5. Severe degenerative changes at L5-S1 with bilateral exiting foraminal stenosis. This exam was performed according to our departmental dose-optimization program, which includes automated exposure control, adjustment of the mA and/or kV according to patient size and/or use of iterative reconstruction technique. Electronically signed by: Eric Ojeda MD 06/07/2020 8:35 AM [employer] UND[employer]ITER
== END ==
LOC: CT 08:44
PROVIDERS: ATTEND Family Medicine
DX: N13.30 Unspecified hydronephrosis (principal); Z90.5 Acquired absence of kidney; K40.20 Bilateral inguinal hernia, without obstruction or gangrene, not specified as recurrent; M47.897 Other spondylosis, lumbosacral region; M48.07 Spinal stenosis, lumbosacral region